=== PATIENT | female | born 1970 | race Caucasian/White ===

== ENCOUNTER 2022-08-30 12:02 | Inpatient (IN) ==
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
[2022-08-30] MEDS ORDERED: ALBUT/IPRATROP 3MG/0.5MG NEB 3 ML VIAL INH STA (12:28)
[2022-08-30] MEDS ORDERED: ALBUT/IPRATROP 3MG/0.5MG NEB 3 ML VIAL ONE (12:30)
[2022-08-30] MEDS ORDERED: FUROSEMIDE INJ 20 MG/2 ML VIAL IV ONE ×2 (12:50→18:45)
[2022-08-30] MEDS ORDERED: POTASSIUM CHLORIDE CRTAB 20 MEQ TABCR PO STA (12:50)
[2022-08-30 12:57] LABS: iSTAT Blood Urea Nitrogen 8 mg/dl (7-18); iSTAT Carbon Dioxide > 40 mmol/L (24-31); iSTAT Chloride 81 mmol/L (101-112); iSTAT Creatinine 0.7 mg/dl (0.6-1.3); iSTAT Glucose 110 mg/dl (70-99); iSTAT Hematocrit 39 % (37-47); iSTAT Hemoglobin 13.3 g/dl (12.0-16.0); iSTAT Ionized Calcium 0.95 mmol/l (1.12-1.32); iSTAT Potassium 2.8 mmol/L (3.3-5.0); iSTAT Sodium 134 mmol/L (135-144)
[2022-08-30 12:57] LABS: Basophils # (auto) 0.02 K/uL (0-0.2); Basophils % (auto) 0.2 %; Eosinophils # (auto) 0.02 K/uL (0-0.50); Eosinophils % (auto) 0.2 %; Hematocrit (blood only) 36.4 % (37.0-47.0); Hemoglobin 13.1 g/dl (12.0-16.0); Immature Granulocytes # (auto) 0.05 K/uL (0.01-0.20); Immature Granulocytes % (auto) 0.5 %; Lymphocytes # (auto) 1.47 K/uL (1.2-3.4); Lymphocytes % (auto) 15.6 %; Mean Corpuscular Hemoglobin 42.7 pg (25.0-34.0); Mean Corpuscular Volume 118.6 fL (80.0-100.0); Mean Platelet Volume 10.3 fL (9.4-12.4); Monocytes # (auto) 0.59 K/uL (0.11-0.59); Monocytes % (auto) 6.3 %; Neutrophils # (auto) 7.29 K/uL (1.40-6.50); Neutrophils % (auto) 77.2 %; Platelet Count 198 K/uL (130-400); RDW Coefficient of Variation 15.5 % (11.5-14.5); RDW Standard Deviation 67.3 fL (36.4-46.3); Red Blood Count 3.07 M/uL (4.20-5.40); White Blood Count 9.44 K/ul (4.8-10.8)
[2022-08-30] MEDS ORDERED: SPIRONOLACTONE 25 MG TAB PO ONE (13:05)
--- NOTE | 2022-08-30 13:05 | XRay Report ---
XR chest 1V portable CLINICAL HISTORY: Dyspnea. COMPARISON STUDY: Chest CT September 11, 2020. Rib series May 18, 2022. FINDINGS: Postoperative findings within the spine are incidentally noted. There is a large right pleu ral effusion. This is significantly increased in size since prior chest radiograph. Pulmonary vascula r congestion is noted. There is a trace left pleural effusion. IMPRESSION: 1. Large right pleural effusion, significantly increased in size since prior chest radiograph. 2. Trace left pleural effusion. 3. Pulmonary vascular congestion. ACT 112: Negative or not required by law. Electronically signed by: Parrish Lebron M.D. 08/30/2022 1:04 PM
[2022-08-30 13:13] LABS: INR 1.4 (0.9-1.1); Partial Thromboplastin Ratio 1.1; Partial Thromboplastin Time 30.5 Seconds (21.0-31.0); Prothrombin Time 14.5 Seconds (9.0-12.0)
[2022-08-30 13:21] LABS: Alanine Aminotransferase 27 U/L (7-52); Albumin Globulin Ratio 0.6 (0.9-2); Albumin Level 3.3 gm/dl (3.4-5.0); Alkaline Phosphatase 319 U/L (34-104); Anion Gap 9 (3-11); Aspartate Aminotransferase 61 U/L (13-39); BUN Creatinine Ratio 11.8 (10-20); Bilirubin,Total 5.7 mg/dl (0.2-1.0); Blood Urea Nitrogen 10 mg/dl (6-23); Calcium 9.3 mg/dl (8.5-10.1); Carbon Dioxide 44 mmol/L (21-32); Chloride 82 mmol/L (98-107); Est GFR (African American) 91.3 ml/min; Est GFR (Non-African American) 78.8 ml/min; Globulin 5.2 gm/dl (2.5-4.0); Glucose 108 mg/dl (70-99(Fasting)); Magnesium 1.5 mg/dl (1.7-2.4); Potassium 2.4 mmol/L (3.5-5.1); Sodium 135 mmol/L (136-145); Total Protein 8.5 gm/dl (6.0-8.3)
[2022-08-30 13:34] LABS: Macrocytosis Present; Polychromasia 1+
[2022-08-30] MEDS: POTASSIUM CHLORIDE / WTR 10 MEQ/100 ML PLCT IV SCH ×4 (13:40→22:10)
[2022-08-30] MEDS: MAGNESIUM SULFATE / D5W 1 GM/100 ML BAG IV SCH ×2 (13:55→15:26)
[2022-08-30 14:20] LABS: Base Excess VBG 23.3 mEq/L; HCO3 VBG 49 mmol/L; Oxygen Saturation VBG < 60.0 %; PCO2 VBG 55 mmHg (38-50); PO2 VBG 29 mmHg; pH VBG 7.56 (7.36-7.41)
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
[2022-08-30 14:32] LABS: Appearance Urine Cloudy (Clear); Bacteria Urine Automated Negative (Negative); Blood Urine Negative (Negative); Color Urine Dark Yellow; Epithelial Cell Urine Auto >30 /lpf (0-5); Glucose Urine UA Negative (Negative); Ketones Urine Trace (Negative); Leukocyte Esterase Urine Trace (Negative); Nitrite Urine Positive (Negative); Protein Urine Trace (Negative); RBC Urine Automated 0-4 /hpf (0-4); Specific Gravity Urine 1.018 (1.000-1.030); Urobilinogen Urine Positive (Negative)
[2022-08-30] MEDS ORDERED: LORazepam 2 MG/1 ML VIAL IV STA (14:32)
[2022-08-30] MEDS ORDERED: ACETAMINOPHEN 1,000 MG/100 ML VIAL IV STA (14:33)
[2022-08-30 14:57] LABS: Bilirubin Urine 2+ (Negative)
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
[2022-08-30] MEDS ORDERED: LORazepam 2 MG/1 ML VIAL IV PRN (15:55)
[2022-08-30 16:20] LABS: Influenza A virus by PCR Negative (Neg); Influenza B virus by PCR Negative (Neg); RSV by PCR Negative (Neg); SARS CoV2 RNA(COVID-19) Ceph NEGATIVE (Negative)
[2022-08-30] MEDS ORDERED: ALBUMIN 25% 12.5 GM/50 ML VIAL IV ONE ×2 (16:34→19:45)
--- NOTE | 2022-08-30 16:34 | Procedure Note ---
Procedure Note Date of Service August 30, 2022 Note Procedure: Diagnostic and therapeutic ultrasound-guided catheter thoracentesis Cylinder Press Operator: Dr. Darrell Luke Indication: Pleural effusion Consent: Signed by patient and verified with timeout prior to procedure Anesthesia: 8 mL's of 1% lidocaine without epinephrine given locally Procedure: Consent was verified and timeout performed. Appropriate imaging studies were reviewed prior to the procedure. Patient was placed in a seated position and limited thoracic ultrasound was performed of the right chest. See separate imaging. The site appropriate for thoracentesis was selected. The skin was prepped and draped in normal sterile fashion. Lidocaine was used for local analgesia. Fluid was aspirated via the finder needle. A small skin jarocho was made with the scalpel and the catheter over the needle apparatus was advanced over the rib into the pleural space. Using the syringe one-way valve system, a total of 1500 mL's of clear yellow fluid was removed. Procedure was terminated due to concerns for hypotension. The catheter was removed and observed to be intact. A sterile dressing was applied. Post procedure chest x-ray was ordered. Fluid was sent for LDH, total protein, cell count, glucose, pH, cytology, gram stain and culture and fungal cultures. The patient tolerated the procedure well without obvious complication. We will give a dose of albumin. Coding CPT Codes Pulmonary/Thoracic - Pulmonary and Thoracic: 71991 Thoracentesis w imaging ([id number]) [facility] [place] Procedure Codes (Charges) Pulmonary/Thoracic Procedure 1: Pulmonary and Thoracic: 02169 Thoracentesis w imaging
--- NOTE | 2022-08-30 16:54 | XRay Report ---
SINGLE VIEW CHEST CLINICAL HISTORY: Status post thoracentesis. FINDINGS: An AP, portable, upright chest radiograph is compared to study performed earlier the same d ay 08/30/2022 and correlated with chest CT dated 09/11/2020. The examination is degraded by portable asif hnique and apical lordotic positioning. The cardiomediastinal silhouette is unremarkable. Chronic int erstitial thickening is similar to previous. There is a layering right pleural effusion with right ba silar consolidation. This has decreased in size from today's earlier examination. Scarring/atelectasi s is noted at the left lung base. No pneumothorax is seen. The skeletal structures are osteopenic. Th e bony thorax is grossly intact. Fusion hardware is noted in the cervical spine. IMPRESSION: 1. No pneumothorax is identified post procedure. 2. Layering right pleural effusion with right basilar consolidation. This has decreased in size from today's earlier examination. 3. The left lung appears clear noting basilar scarring/atelectasis. ACT 112: Negative or not required by law. Electronically signed by: Nitish Lyon M.D. 08/30/2022 4:52 PM
--- NOTE | 2022-08-30 17:16 | Electrocardiogram Report ---
Test Reason : Blood Pressure : / mmHG Vent. Rate : 100 BPM Atrial Rate : 100 BPM P-R Int : 124 ms QRS Dur : 066 ms QT Int : 520 ms P-R-T Axes : -06 -18 069 degrees QTc Int : 670 ms Poor data quality, interpretation may be adversely affected Normal sinus rhythm Low voltage QRS Nonspecific ST and T wave abnormality Abnormal ECG When compared with ECG of 18-JUL-2015 06:45, T wave inversion now evident in Anterior leads QT has lengthened Confirmed by Lee Garcia ([id number]) on 08/30/2022 5:16:26 PM Referred By: REFERRED SELF Confirmed By:Yariel Garcia
--- NOTE | 2022-08-30 17:44 | Ultrasound Report ---
ULTRASOUND BILATERAL LOWER EXTREMITY VENOUS CLINICAL HISTORY: Dyspnea. COMPARISON STUDY: Left lower extremity venous ultrasound dated 12/02/2020 TECHNIQUE: Real-time, grayscale, and color Doppler sonography of the deep veins of the right and left lower extremity was performed from the inguinal crease to the calf. Compression and augmentation wer e utilized. FINDINGS: There is no sonographic evidence of deep venous thrombosis identified in the right or left lower extremity. The common femoral, superficial femoral, and popliteal veins are patent and normally compressible bilaterally. The greater saphenous vein and the profunda femoris vein at the junction w ith the common femoral vein are clear in both legs. The visualized calf veins are patent bilaterally. IMPRESSION: There is no sonographic evidence of deep venous thrombosis identified in the right or lef t lower extremity. ACT 112: Negative or not required by law. Electronically signed by: Nitish Lyon M.D. 08/30/2022 5:42 PM
[2022-08-30 17:45] LABS: Appearance Pleural Fluid Cloudy; Color Pleural Fluid Yellow; RBC Pleural Fluid Auto < 2000 /uL; Source Pleural Fluid Right Lung; WBC Pleural Fluid Auto 3922 /uL
[2022-08-30 17:46] LABS: Lymphocytes, Fluid 3 %; Mono,Macrophage,Mesothelial 8 %; Neutrophils, Fluid 89 %
--- NOTE | 2022-08-30 17:46 | Ultrasound Report ---
ULTRASOUND ASCITES CHECK CLINICAL HISTORY: Ascites. Dyspnea. COMPARISON STUDY: Abdominal CT dated 05/21/2022. FINDINGS: Real-time grayscale sonography of all 4 quadrants of the abdomen was performed to evaluate abdominal ascites. There is a small volume of abdominopelvic ascites. This was insufficient for parac entesis. IMPRESSION: Small volume abdominopelvic ascites. This was insufficient for paracentesis. Electronically signed by: Nitish Lyon M.D. 08/30/2022 5:45 PM
[2022-08-30] MEDS: cefTRIAXone SODIUM 2,000 MG in DEXTROSE 5% 50 ML IV SCH (20:03)
[2022-08-30] MEDS ORDERED: CYCLOBENZAPRINE HCL 10 MG TAB PO PRN (20:17)
[2022-08-30] MEDS ORDERED: ONDANSETRON 4 MG OD TAB PO PRN (20:17)
[2022-08-30] MEDS ORDERED: GABAPENTIN 300 MG CAP PO PRN (20:17)
[2022-08-30] MEDS ORDERED: ALBUTEROL HFA 8 GM INHALER INH PRN (20:17)
[2022-08-30] MEDS ORDERED: DEXTROSE 50% 50 ML SYRINGE IV PRN (20:19)
[2022-08-30] MEDS ORDERED: GLUCAGON FOR INJ 1 MG VIAL SQ PRN (20:19)
[2022-08-30] MEDS ORDERED: PHARMACY GLYCEMIC MGMT CONSULT PRN (20:19)
[2022-08-30] MEDS ORDERED: CARBOHYDRATES FOR HYPOGLYCEMIA PO PRN (20:19)
[2022-08-30] MEDS ORDERED: GLUCOSE 40% GEL 15 GM TUBE PO PRN (20:19)
[2022-08-30] MEDS ORDERED: GLUCOSE 10 TAB/TUBE PO PRN (20:19)
[2022-08-30 20:59] LABS: Base Excess VBG 21.4 mEq/L; HCO3 VBG 47 mmol/L; Oxygen Saturation VBG 86.6 %; PCO2 VBG 54 mmHg (38-50); PO2 VBG 54 mmHg; pH VBG 7.55 (7.36-7.41)
[2022-08-30] MEDS ORDERED: LANTUS PER UNIT CHARGE SQ SCH (21:00)
[2022-08-30] MEDS ORDERED: OPTIRAY 350 100ml IV ONE (21:20)
[2022-08-30] MEDS: busPIRone 5 MG TAB PO SCH (21:47)
[2022-08-30] MEDS: PANTOprazole 40 MG TAB PO SCH (21:47)
[2022-08-30] MEDS: FAMOTIDINE 20 MG TAB PO SCH (21:47)
[2022-08-30] MEDS: POTASSIUM CHLORIDE CRTAB 20 MEQ TABCR PO SCH (21:48)
[2022-08-30] MEDS: INSULIN ASPART PER UNIT SC SCH (21:49)
[2022-08-31 00:04] LABS: BUN Creatinine Ratio 13.9 (10-20); Calcium 8.4 mg/dl (8.5-10.1); Creatinine Clr Calc Pharmacy 99.6 ml/min; Est GFR (African American) 111.6 ml/min; Est GFR (Non-African American) 96.3 ml/min; Magnesium 1.8 mg/dl (1.7-2.4); Potassium 2.6 mmol/L (3.5-5.1)
[2022-08-31] MEDS: POTASSIUM CHLORIDE / WTR 10 MEQ/100 ML PLCT IV SCH ×8 (00:19→22:01)
[2022-08-31] MEDS ORDERED: INSULIN ASPART PER UNIT SC SCH (02:00)
[2022-08-31] MEDS: LEVOTHYROXINE SODIUM 150 MCG TABLET PO SCH (05:45)
[2022-08-31 07:46] LABS: HCO3 VBG 49 mmol/L; Oxygen Saturation VBG 82.9 %; PCO2 VBG 53 mmHg (38-50); PO2 VBG 54 mmHg; pH VBG 7.57 (7.36-7.41)
[2022-08-31 08:00] LABS: Basophils # (auto) 0.02 K/uL (0-0.2); Basophils % (auto) 0.2 %; Eosinophils # (auto) 0.06 K/uL (0-0.50); Eosinophils % (auto) 0.6 %; Hematocrit (blood only) 28.3 % (37.0-47.0); Hemoglobin 10.1 g/dl (12.0-16.0); Immature Granulocytes # (auto) 0.07 K/uL (0.01-0.20); Immature Granulocytes % (auto) 0.7 %; Lymphocytes % (auto) 24.3 %; Mean Corpuscular Hemoglobin 42.1 pg (25.0-34.0); Mean Corpuscular Hgb Conc 35.7 g/dL (32.0-36.0); Mean Corpuscular Volume 117.9 fL (80.0-100.0); Mean Platelet Volume 10.4 fL (9.4-12.4); Monocytes # (auto) 1.06 K/uL (0.11-0.59); Monocytes % (auto) 10.8 %; Neutrophils # (auto) 6.25 K/uL (1.40-6.50); Neutrophils % (auto) 63.4 %; Platelet Count 151 K/uL (130-400); RDW Coefficient of Variation 15.8 % (11.5-14.5); RDW Standard Deviation 66.9 fL (36.4-46.3); White Blood Count 9.86 K/ul (4.8-10.8)
--- NOTE | 2022-08-31 08:04 | XRay Report ---
SINGLE VIEW CHEST CLINICAL HISTORY: Dyspnea. Recent thoracentesis. FINDINGS: An AP, portable, upright chest radiograph is compared to studies performed earlier the same day 08/30/2022 and correlated with chest CT dated 09/11/2020. The examination is degraded by portable t echnique and apical lordotic positioning. The cardiomediastinal silhouette is unremarkable. Chronic i nterstitial thickening is similar to previous. There is a layering right pleural effusion with right basilar consolidation. Scarring/atelectasis is noted at the left lung base. No pneumothorax is seen. The skeletal structures are osteopenic. The bony thorax is grossly intact. Fusion hardware is noted i n the cervical spine. IMPRESSION: 1. A layering right pleural effusion with right basilar consolidation is similar to the most recent p rior examination. 2. The left lung appears clear noting basilar scarring/atelectasis. ACT 112: Negative or not required by law. Electronically signed by: Nitish Lyon M.D. 08/31/2022 8:03 AM
[2022-08-31 08:08] LABS: Estimated Average Glucose 94 mg/dl; Hemoglobin A1C 4.9 % (4.5-5.6)
[2022-08-31] MEDS: LORazepam 0.5 MG TAB PO PRN (08:13)
[2022-08-31] MEDS: POTASSIUM CHLORIDE CRTAB 20 MEQ TABCR PO SCH ×3 (08:27→20:09)
[2022-08-31] MEDS: busPIRone 5 MG TAB PO SCH ×3 (08:27→20:08)
[2022-08-31] MEDS: FAMOTIDINE 20 MG TAB PO SCH ×2 (08:27→20:09)
--- NOTE | 2022-08-31 08:27 | Pulmonology Progress Note ---
Date of Service August 31, 2022 Assessment & Plan (1) Hydrothorax: (2) Abdominal ascites: (3) Volume overload: (4) Acute hypoxemic respiratory failure: (5) Acute serous pleuritis: Plan Status post thoracentesis of the right 08/30/2022 with removal of 1.5 L of fluid. I placed a small bore chest tube on the right today and placed the chest tube to gravity. So far about 1.5 L of fluid has been removed. She does have signs of spontaneous bacterial pleuritis. Ceftriaxone started 08/30/2022. Patient feels improvement status post drainage. Recommend outpatient tertiary referral for possible TIPS procedure given recurrent ascites and hydrothorax. Would not place a Pleurx catheter in the chest unless the patient has had a thorough evaluation by hepatology and is only pursuing hospice care. Can consider Pleurx catheter in the abdomen, but would defer to our GI colleagues. Post procedure chest x-ray pending. We will continue to follow along with you. Thank you for the consult. Admission and Anticipated Discharge Date Admission Date: August 30, 2022 Subjective Patient requiring BiPAP this morning. Tripoding at times and very short of breath. Review of Systems Review of Systems: All systems reviewed & are unremarkable except as noted in HPI & below Physical Exam Physical Exam: Constitutional: Patient appears to be of their stated age. Patient is well-developed. Moderate distress. Eyes: Pupils are equal round and reactive to light. Conjunctivae are normal. Anicteric sclera. Ears nose, mouth and throat: Mallampati class 2. Normal posterior oropharynx. Uvula is midline. Neck: Trachea is midline. Visual inspection is normal. Respiratory: Tachypneic. Diminished on the right. No wheezes. Cardiovascular: Regular rate and rhythm. No murmurs. No edema. Gastrointestinal: Tense abdominal ascites. Positive fluid wave.. Musculoskeletal: No cyanosis. Patient is able to move all extremities. Strength is 5 out of 5 in the upper and lower extremities. Skin: No rashes, warm dry and intact. Neurologic: No obvious focal neurological deficits seen. Psychiatric: Alert and oriented x3 with a euthymic affect. Results & Data Results & Data ([facility]) Vital Signs (Past 12 Hours) Vital Signs Temp Pulse Pulse Resp BP Pulse Ox O2 Del Method 08/31/22 07:30 87 22 91 08/31/22 07:16 36.8 C 84 22 116/77 91 BiPAP 08/31/22 03:05 80 20 94 08/31/22 02:52 36.8 C 83 18 103/65 92 BiPAP 08/30/22 22:07 86 08/30/22 23:16 08/30/22 22:00 36.7 C 88 18 92/59 L 94 Non-rebreather O2 Flow Rate FiO2 08/31/22 07:30 75 08/31/22 07:16 08/31/22 03:05 75 08/31/22 02:52 08/30/22 22:07 08/30/22 23:16 75 08/30/22 22:00 10 PG Care Time/CCT Total # of Minutes Spent Total Time Spent with Patient: Total time spent is greater than 50% in coordination of care (as documented) at patient's floor/unit and/or counseling patient: Coding Level of Care Code 76410 SUB INP/OBS CARE 3/50MIN Diagnoses Hydrothorax J94.8 Abdominal ascites R18.8 Volume overload E87.70 Acute hypoxemic respiratory failure J96.01 Acute serous pleuritis J90
[2022-08-31] MEDS: PANTOprazole 40 MG TAB PO SCH ×2 (08:28→20:09)
[2022-08-31 08:35] LABS: Albumin Globulin Ratio 0.7 (0.9-2); Albumin Level 2.7 gm/dl (3.4-5.0); BUN Creatinine Ratio 15.6 (10-20); Bilirubin,Total 2.7 mg/dl (0.2-1.0); Calcium 8.3 mg/dl (8.5-10.1); Creatinine Clr Calc Pharmacy 112.1 ml/min; Est GFR (African American) 118.9 ml/min; Est GFR (Non-African American) 102.6 ml/min; Magnesium 1.7 mg/dl (1.7-2.4); Potassium 2.7 mmol/L (3.5-5.1); Total Protein 6.7 gm/dl (6.0-8.3)
[2022-08-31] MEDS: INSULIN ASPART PER UNIT SC SCH ×4 (08:35→21:07)
--- NOTE | 2022-08-31 08:40 | Procedure Note ---
Procedure Note Date of Service August 31, 2022 Note 8 Pakistani pneumo dart CATHETER PLACEMENT NOTE: Procedure: Pneumo dart catheter placement. Indication: Large right pleural effusion Anesthesia: 10 mL lidocaine 1% Written consent was obtained and placed on the chart. Timeout was done prior to the procedure. Prior to procedure, chest x-ray films were reviewed by myself and demonstrated a large right pleural effusion. A time-out was completed verifying correct patient, procedure, site, positioning, and implant(s) or special equipment if applicable. Utilizing bedside ultrasound, chest wall was evaluated for location for optimal chest tube placement. Location between the fifth and sixth ribs were marked on the skin using gentle pressure. The right sided chest wall was prepped with chlorhexidine and draped in the typical sterile fashion. 10 mL of 1% Lidocaine without epinephrine was used to anesthetize the skin down to the dorsal surface of the 6 rib. Yellow fluid return confirmed entry into the pleural space. Lidocaine was injected into the pleural space for increased anesthetization. Introducer needle on syringe was inserted in perpendicular fashion taking care to ride just above the dorsal surface of the 6 rib. Entry into the pleural space was heralded by yellow fluid return into the syringe while under gentle aspiration. Scalpel was used to make small incision of the superficial tissue, parallel to the direction of the rib anatomy. Catheter was inserted into the incision site and the catheter was inserted over the needle apparatus. Catheter was attached to an adapter which then attached to a Heard catheter. Drainage to gravity. Approximately 1500 mL of pleural fluid immediately evacuated. Postprocedure chest x-ray pending. Coding CPT Codes Pulmonary/Thoracic - Pulmonary and Thoracic: 85090 Tube thoracostomy ([id number]) [facility] [place] Procedure Codes (Charges) Pulmonary/Thoracic Procedure 1: Pulmonary and Thoracic: 78234 Tube thoracostomy
[2022-08-31 08:56] LABS: INR 1.4 (0.9-1.1); Prothrombin Time 14.7 Seconds (9.0-12.0)
[2022-08-31] MEDS ORDERED: METHADONE ORAL SOLN 2 MG/ML PO SCH (09:00)
[2022-08-31] MEDS ORDERED: FUROSEMIDE 40 MG/4 ML VIAL IV SCH (09:00)
[2022-08-31] MEDS ORDERED: PATIENT'S OWN CONTROLLED MED 1: Methadone SCH (09:00)
[2022-08-31] MEDS ORDERED: ACETAMINOPHEN 325 MG TAB PO PRN (09:16)
--- NOTE | 2022-08-31 09:24 | CT Scan Report ---
CT OF THE ABDOMEN AND PELVIS WITH CONTRAST CLINICAL HISTORY: tense abdomen hx ascites RODRIGUEZ,? loculated fluid COMPARISON STUDY: CT of the abdomen and pelvis May 21, 2022. Ultrasound to assess for ascites F ruary 2022. TECHNIQUE: Following IV administration of 85 mL of Optiray, axial images of the abdomen and pelvis we re obtained from the lung bases to the proximal femurs. Images were reviewed in the axial, sagittal, and coronal planes. IV contrast was administered without complication. Automated exposure control wa s utilized for the study. A dose lowering technique was utilized adhering to the principles of ALARA . CT DOSE: 693.56 mGy.cm FINDINGS: A moderate to large right pleural effusion is partially imaged on this examination. Associa rosalinda right lower lobe and right middle lobe suspected collapse is present. There is a trace left pleur al effusion with subsegmental left lower lobe atelectasis. No pneumatosis, free air or portal venous gas is present. The liver is enlarged. Severe hepatic steatosis is noted. There is suspected cirrhosi s. No discrete hepatic lesions are identified. Mild dilatation of the common bile duct is likely rela rosalinda to cholecystectomy. The main, left and right portal veins are patent. There is mild splenomegaly. There are small upper abdominal varices. A small amount of abdominal and pelvic ascites is noted. Th ere is no evidence for a bowel obstruction. Note is made of wall thickening of the ascending colon an d the proximal transverse colon. No fluid collection is identified. There is no evidence for a bowel obstruction. Left renal scarring is present. There is no hydronephrosis. A Heard balloon and gas with in the bladder present. There are no acute fractures within the visualized skeletal structures. IMPRESSION: 1. Severe hepatic steatosis with hepatomegaly and suspected cirrhosis. Evidence for portal hypertensi on with small ascites, splenomegaly and varices formation. 2. Moderate to large right pleural effusion, partially imaged on this exam. Associated right lower lo be and right middle lobe atelectasis. Small left pleural effusion. 3. Right colon wall thickening. This is likely due to portal hypertension although a nonspecific coli tis could appear similar. No bowel obstruction. ACT 112: Negative or not required by law. Electronically signed by: Parrish Lebron M.D. 08/31/2022 9:23 AM
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
--- NOTE | 2022-08-31 10:49 | Electrocardiogram Report ---
Test Reason : Blood Pressure : / mmHG Vent. Rate : 084 BPM Atrial Rate : 084 BPM P-R Int : 148 ms QRS Dur : 080 ms QT Int : 556 ms P-R-T Axes : -01 004 036 degrees QTc Int : 657 ms Normal sinus rhythm Low voltage QRS Nonspecific ST and T wave abnormality Prolonged QT Abnormal ECG When compared with ECG of 30-AUG-2022 12:51, No significant change was found Confirmed by Lee Garcia ([id number]) on 08/31/2022 10:48:51 AM Referred By: REFERRED SELF Confirmed By:Yariel Garcia
--- NOTE | 2022-08-31 11:03 | XRay Report ---
SINGLE VIEW CHEST CLINICAL HISTORY: Status post chest tube placement. FINDINGS: An AP, portable, upright chest radiograph is compared to studies dated 08/30/2022 and correl ated with chest CT dated 09/11/2020. The examination is degraded by portable technique and apical lordo tic positioning. The cardiomediastinal silhouette is unremarkable. Chronic interstitial thickening is similar to previous. A chest tube has been placed at the right lung base. There is only a small resi dual right pleural effusion with associated right basilar consolidation. This has significantly decre ased in size from previous. Scarring/atelectasis is noted at the left lung base. No pneumothorax is s een. The skeletal structures are osteopenic. The bony thorax is grossly intact. Fusion hardware is no rosalinda in the cervical spine. IMPRESSION: 1. A right-sided chest tube is in place. No pneumothorax is identified post procedure. 2. There is only a small residual right pleural effusion with right basilar consolidation. This has s ignificantly decreased in size from recent prior studies. 3. The left lung appears clear noting basilar scarring/atelectasis. ACT 112: Negative or not required by law. Electronically signed by: Nitish Lyon M.D. 08/31/2022 11:02 AM
--- NOTE | 2022-08-31 12:16 | Procedure Note ---
Procedure Note Date of Service August 31, 2022 Note Dressing taken down. Sutures were removed. Chest tube removed upon exhalation. Patient tolerated chest tube removal. Occlusive dressing placed over the incision site. Coding CPT Codes Pulmonary/Thoracic - Pulmonary and Thoracic: 22781 Remove lung catheter ([id number]) [facility] Procedure Codes (Charges) Pulmonary/Thoracic Procedure 1: Pulmonary and Thoracic: 83836 Remove lung catheter
--- NOTE | 2022-08-31 13:11 | Pharmacy Report ---
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 No insulin was administered 08/30. Today BSG so far is trending between 84 and 124 mg/dL * Will leave Novolog on board with loose parameters and monitor PLAN FOR INPATIENT GLYCEMIC CONTROL: * Hold outpatient oral diabetes medications * Bolus insulin * NovoLog per scale ACHS or Q6hrs while NPO * Goal Range: Low 110 mg/dL - High 140 mg/dL * Correction Factor: 35 mg/dL/unit * Nutritional / Prandial insulin per carb ratio of 1 unit per 12 grams CHO consumed
--- NOTE | 2022-08-31 14:39 | Hospitalist Progress Note ---
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 Status post right-sided thoracentesis and with right sided chest tube in place. Appreciate pulmonary medicine consultation and recommendations. She remains on intravenous Rocephin until cultures proven negative. No definite evidence of empyema. (2) Abdominal ascites: Plan: patient may be a TIPS candidate (especially given hepatic hydrothorax). No history of hepatic encephalopathy. No paracentesis needed at this time. Continue current medical management. Gastroenterology consulted. (3) Hypokalemia: Plan: Replacement therapy continues. Serial labs (4) Hypercarbia: Plan: acute hypoxic/hypercarbic respiratory failure present on admission. Wean oxygen off as tolerated. (5) Elevated troponin: Plan: Mild. No evidence of acute coronary syndrome. Telemetry. 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 Julissa Augustin) with last documentation from 06/29/2022. At that time was relatively stable with every 2-week paracentesis on Lasix 40 mg daily. (7) Hypomagnesemia: Plan: Corrected with replacement therapy. (8) Methadone dependence: Plan: Continue methadone 82 mg daily. (9) Diabetes mellitus: Plan: Patient is typically on 30 units glargine nightly. Currently on Lantus 10 units twice daily with sliding scale insulin, with glycemic management consult. ADA diet. Plan Anticipate eventual discharge back to home later this week . She may need oxygen at the time of discharge. Low sodium diabetic diet Admission and Anticipated Discharge Date Admission Date: August 30, 2022 Subjective Alert and oriented. Right-sided chest tube is now in place. She underwent right thoracentesis yesterday, August 30 Review of Systems Review of Systems: Constitutional-no fever or chills ENT-no blurred vision, no double vision, no epistaxis, no sore throat Respiratory-no cough, no wheezing, no shortness of breath at rest Cardiac-no palpitations, no chest pain, no syncope GI-no nausea, vomiting, diarrhea, melena, hematochezia -no urinary retention, no urinary incontinence, no dysuria, no hematuria Musculoskeletal-no joint pain, no muscle tenderness Skin-no bruising, no rashes, no pruritus Neuro-no isolated weakness, no paresthesia, no weakness Psych-no depression, no anxiety Physical Exam Physical Exam: General-alert and oriented x3, no fevers, no chills HEENT-head atraumatic and normocephalic, pupils equal and reactive to light, extraocular muscles intact Neck-no lymphadenopathy or thyromegaly, trachea midline Chest-decreased breath sounds and dullness at the right base. Right lower lateral chest tube in place . Clear yellow-colored fluid draining Cardiac-regular rate and rhythm, normal S1 and S2 Abdomen-normal bowel sounds, nontender, no hepatosplenomegaly Extremities-no cyanosis, clubbing, or edema Neuro-cranial nerves II through XII intact, motor and sensory function within normal limits, strength symmetrical , no focal deficits Psych-normal affect, normal mood Results & Data Results & Data ([facility]) Vital Signs (Past 12 Hours) Vital Signs Temp Pulse Pulse Resp BP Pulse Ox O2 Del Method 08/31/22 11:09 36.7 C 88 19 101/71 92 Nasal Cannula 08/31/22 10:17 64 08/31/22 09:00 BiPAP 08/31/22 07:30 87 22 91 08/31/22 07:16 36.8 C 84 22 116/77 91 BiPAP 08/31/22 03:05 80 20 94 08/31/22 02:52 36.8 C 83 18 103/65 92 BiPAP O2 Flow Rate FiO2 08/31/22 11:09 4.0 08/31/22 10:17 08/31/22 09:00 08/31/22 07:30 75 08/31/22 07:16 08/31/22 03:05 75 08/31/22 02:52 Laboratory Results 08/31/22 07:20 08/31/22 07:20 PG Care Time/CCT Total # of Minutes Spent Total Time Spent with Patient: Total time spent is greater than 50% in coordination of care (as documented) at patient's floor/unit and/or counseling patient: Coding Level of Care Code 97629 SUB INP/OBS CARE 3/50MIN Diagnoses Acute hypoxemic respiratory failure J96.01 Abdominal ascites R18.8 Hypokalemia E87.6 Hypercarbia R06.89 Elevated troponin R77.8 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
[2022-08-31] MEDS: cefTRIAXone SODIUM 2,000 MG in DEXTROSE 5% 50 ML IV SCH (18:10)
[2022-09-01] MEDS: LEVOTHYROXINE SODIUM 150 MCG TABLET PO SCH (06:26)
[2022-09-01] MEDS: LORazepam 0.5 MG TAB PO PRN (06:29)
[2022-09-01] MEDS: PANTOprazole 40 MG TAB PO SCH ×2 (08:21→19:56)
[2022-09-01] MEDS: POTASSIUM CHLORIDE CRTAB 20 MEQ TABCR PO SCH ×3 (08:21→19:56)
[2022-09-01] MEDS: METHADONE ORAL SOLN 2 MG/ML PO SCH (08:21)
[2022-09-01] MEDS: busPIRone 5 MG TAB PO SCH ×3 (08:22→19:55)
[2022-09-01] MEDS: PATIENT'S OWN CONTROLLED MED 1: Methadone SCH (08:22)
[2022-09-01] MEDS: FAMOTIDINE 20 MG TAB PO SCH ×2 (08:22→19:56)
[2022-09-01 08:37] LABS: Basophils # (auto) 0.03 K/uL (0-0.2); Basophils % (auto) 0.3 %; Eosinophils # (auto) 0.08 K/uL (0-0.50); Eosinophils % (auto) 0.8 %; Hematocrit (blood only) 28.8 % (37.0-47.0); Hemoglobin 10.1 g/dl (12.0-16.0); Immature Granulocytes # (auto) 0.06 K/uL (0.01-0.20); Immature Granulocytes % (auto) 0.6 %; Lymphocytes # (auto) 1.98 K/uL (1.2-3.4); Mean Corpuscular Hemoglobin 41.9 pg (25.0-34.0); Mean Corpuscular Hgb Conc 35.1 g/dL (32.0-36.0); Mean Corpuscular Volume 119.5 fL (80.0-100.0); Mean Platelet Volume 10.7 fL (9.4-12.4); Monocytes # (auto) 0.81 K/uL (0.11-0.59); Monocytes % (auto) 8.2 %; Neutrophils # (auto) 6.94 K/uL (1.40-6.50); Neutrophils % (auto) 70.1 %; Platelet Count 139 K/uL (130-400); RDW Coefficient of Variation 15.9 % (11.5-14.5); Red Blood Count 2.41 M/uL (4.20-5.40)
[2022-09-01 08:52] LABS: BUN Creatinine Ratio 17.7 (10-20); Calcium 8.4 mg/dl (8.5-10.1); Creatinine Clr Calc Pharmacy 116.2 ml/min; Est GFR (African American) 120.2 ml/min; Est GFR (Non-African American) 103.7 ml/min; Potassium 3.2 mmol/L (3.5-5.1)
[2022-09-01] MEDS: INSULIN ASPART PER UNIT SC SCH ×4 (08:54→19:57)
[2022-09-01] MEDS: POTASSIUM CHLORIDE / WTR 10 MEQ/100 ML PLCT IV SCH ×3 (10:10→12:16)
--- NOTE | 2022-09-01 13:14 | Pulmonology Progress Note ---
Date of Service September 01, 2022 Assessment & Plan (1) Hydrothorax: (2) Abdominal ascites: (3) Volume overload: (4) Acute hypoxemic respiratory failure: (5) Acute serous pleuritis: Plan No signs of infection at this time from the pleural space. Ok to discontinue abx and discharge home from pulmonary perspective. Needs home o2 eval prior to discharge. Will need follow up with hematology for possible TIPS. Pleural fluid cytology negative. Admission and Anticipated Discharge Date Admission Date: August 30, 2022 Subjective Dyspnea improved. No chest pain or fevers. Review of Systems Review of Systems: All systems reviewed & are unremarkable except as noted in HPI & below Physical Exam Physical Exam: Constitutional: Patient appears to be of their stated age. Patient is well- developed. Moderate distress. Eyes: Pupils are equal round and reactive to light. Conjunctivae are normal. Anicteric sclera. Ears nose, mouth and throat: Mallampati class 2. Normal posterior oropharynx. Uvula is midline. Neck: Trachea is midline. Visual inspection is normal. Respiratory: Tachypneic. Diminished on the right. No wheezes. Cardiovascular: Regular rate and rhythm. No murmurs. No edema. Gastrointestinal: Tense abdominal ascites. Positive fluid wave. Musculoskeletal: No cyanosis. Patient is able to move all extremities. Strength is 5 out of 5 in the upper and lower extremities. Skin: No rashes, warm dry and intact. Neurologic: No obvious focal neurological deficits seen. Psychiatric: Alert and oriented x3 with a euthymic affect. Results & Data Results & Data ([facility]) Vital Signs (Past 12 Hours) Vital Signs Temp Pulse Resp BP Pulse Ox O2 Del Method O2 Flow Rate 09/01/22 12:13 36.9 C 91 H 19 114/73 94 Nasal Cannula 4.0 09/01/22 09:40 Nasal Cannula 4 09/01/22 07:43 36.8 C 85 18 108/74 93 Nasal Cannula 4.0 09/01/22 03:06 37.0 C 83 14 100/65 90 Nasal Cannula 4 PG Care Time/CCT Total # of Minutes Spent Total Time Spent with Patient: Total time spent is greater than 50% in coordination of care (as documented) at patient's floor/unit and/or counseling patient: Coding Level of Care Code 56716 SUB INP/OBS CARE 2/35MIN Diagnoses Hydrothorax J94.8 Abdominal ascites R18.8 Volume overload E87.70 Acute hypoxemic respiratory failure J96.01 Acute serous pleuritis J90
--- NOTE | 2022-09-01 14:13 | Hospitalist Progress Note ---
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 Status post right-sided thoracentesis and with right sided chest tube. Chest tube was removed yesterday, August 31. Appreciate pulmonary medicine consultation and recommendations. Rocephin discontinued. Cultures negative. No definite evidence of empyema. (2) Abdominal ascites: Plan: patient may be a TIPS candidate (especially given hepatic hydrothorax). No history of hepatic encephalopathy. No paracentesis needed at this time. Continue current medical management. Gastroenterology consulted. (3) Hypokalemia: Plan: Replacement therapy continues. Serial labs (4) Hypercarbia: Plan: acute hypoxic/hypercarbic respiratory failure present on admission. Two-step oxygen evaluation completed. She needs 2 L at rest and 3 L with exertion at the time of discharge. Hopefully this can be weaned off as time progresses. (5) Elevated troponin: Plan: Mild. No evidence of acute coronary syndrome. Telemetry. 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 Julissa Augustin) with last documentation from 06/29/2022. At that time was relatively stable with every 2-week paracentesis. On Lasix 40 mg daily. (7) Hypomagnesemia: Plan: Corrected with replacement therapy. (8) Methadone dependence: Plan: Continue methadone daily. (9) Diabetes mellitus: Plan: Patient is typically on 30 units glargine nightly. Currently on Lantus 10 units twice daily with sliding scale insulin, with glycemic management consult. ADA diet. Plan Anticipate discharge to home tomorrow, September 02, with oxygen. Admission and Anticipated Discharge Date Admission Date: August 30, 2022 Subjective Alert and oriented. Potassium supplementation continues. The right chest tube was removed yesterday, August 31. Two-step oxygen evaluation reveals the need for 2 L at rest and 3 L with ambulation. Heard catheter will be removed today. Probably home tomorrow, September 02 Review of Systems Review of Systems: Constitutional-no fever or chills ENT-no blurred vision, no double vision, no epistaxis, no sore throat Respiratory-no cough, no wheezing, no shortness of breath at rest Cardiac-no palpitations, no chest pain, no syncope GI-no nausea, vomiting, diarrhea, melena, hematochezia -no urinary retention, no urinary incontinence, no dysuria, no hematuria Musculoskeletal-no joint pain, no muscle tenderness Skin-no bruising, no rashes, no pruritus Neuro-no isolated weakness, no paresthesia, no weakness Psych-no depression, no anxiety Physical Exam 2 Physical Exam: General-alert and oriented x3, no fevers, no chills HEENT-head atraumatic and normocephalic, pupils equal and reactive to light, extraocular muscles intact Neck-no lymphadenopathy or thyromegaly, trachea midline Chest-decreased breath sounds and dullness at the right base. Right lower lateral chest tube has been removed. Cardiac-regular rate and rhythm, normal S1 and S2 Abdomen-normal bowel sounds, nontender, no hepatosplenomegaly Extremities-no cyanosis, clubbing, or edema Neuro-cranial nerves II through XII intact, motor and sensory function within normal limits, strength symmetrical , no focal deficits Psych-normal affect, normal mood Results & Data Results & Data ([facility]) Vital Signs (Past 12 Hours) Vital Signs Temp Pulse Pulse Pulse Pulse Pulse Pulse 09/01/22 13:22 98 H 99 H 104 H 94 H 84 09/01/22 12:13 36.9 C 91 H 09/01/22 09:40 09/01/22 07:43 36.8 C 85 09/01/22 03:06 37.0 C 83 Resp Resp Resp Resp Resp Resp BP 09/01/22 13:22 16 20 20 16 16 09/01/22 12:13 19 114/73 09/01/22 09:40 09/01/22 07:43 18 108/74 09/01/22 03:06 14 100/65 Pulse Ox Pulse Ox Pulse Ox Pulse Ox Pulse Ox Pulse Ox O2 Del Method 09/01/22 13:22 92 94 83 L 91 87 L 09/01/22 12:13 94 Nasal Cannula 09/01/22 09:40 Nasal Cannula 09/01/22 07:43 93 Nasal Cannula 09/01/22 03:06 90 Nasal Cannula O2 Flow Rate O2 Flow Rate O2 Flow Rate O2 Flow Rate O2 Flow Rate 09/01/22 13:22 2 3 2 2 09/01/22 12:13 4.0 02/22/23 09:40 4 09/01/22 07:43 4.0 09/01/22 03:06 4 Laboratory Results 09/01/22 07:45 09/01/22 07:45 PG Care Time/CCT Total # of Minutes Spent Total Time Spent with Patient: Total time spent is greater than 50% in coordination of care (as documented) at patient's floor/unit and/or counseling patient: Coding Level of Care Code 77601 SUB INP/OBS CARE 3/50MIN Diagnoses Acute hypoxemic respiratory failure J96.01 Abdominal ascites R18.8 Hypokalemia E87.6 Hypercarbia R06.89 Elevated troponin R77.8 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
[2022-09-02] MEDS: LEVOTHYROXINE SODIUM 150 MCG TABLET PO SCH (05:48)
[2022-09-02 06:10] LABS: Hematocrit (blood only) 27.3 % (37.0-47.0); Hemoglobin 9.3 g/dl (12.0-16.0); Mean Corpuscular Hemoglobin 41.9 pg (25.0-34.0); Mean Corpuscular Hgb Conc 34.1 g/dL (32.0-36.0); Mean Platelet Volume 10.5 fL (9.4-12.4); Platelet Count 146 K/uL (130-400); RDW Coefficient of Variation 16.2 % (11.5-14.5); RDW Standard Deviation 72.3 fL (36.4-46.3); Red Blood Count 2.22 M/uL (4.20-5.40); White Blood Count 8.73 K/ul (4.8-10.8)
[2022-09-02 06:36] LABS: Basophils # (auto) 0.02 K/uL (0-0.2); Basophils % (auto) 0.2 %; Eosinophils # (auto) 0.12 K/uL (0-0.50); Eosinophils % (auto) 1.4 %; Immature Granulocytes # (auto) 0.05 K/uL (0.01-0.20); Immature Granulocytes % (auto) 0.6 %; Lymphocytes # (auto) 2.66 K/uL (1.2-3.4); Lymphocytes % (auto) 30.5 %; Macrocytosis Present; Monocytes # (auto) 0.92 K/uL (0.11-0.59); Monocytes % (auto) 10.5 %; Neutrophils # (auto) 4.96 K/uL (1.40-6.50); Neutrophils % (auto) 56.8 %; Polychromasia 1+
[2022-09-02 06:43] LABS: BUN Creatinine Ratio 14.8 (10-20); Calcium 8.6 mg/dl (8.5-10.1); Est GFR (African American) 120.8 ml/min; Est GFR (Non-African American) 104.2 ml/min; Potassium 3.9 mmol/L (3.5-5.1)
[2022-09-02] MEDS: INSULIN ASPART PER UNIT SC SCH ×2 (08:41→12:10)
[2022-09-02] MEDS: busPIRone 5 MG TAB PO SCH ×2 (08:42→14:46)
[2022-09-02] MEDS: METHADONE ORAL SOLN 2 MG/ML PO SCH (08:43)
[2022-09-02] MEDS: FAMOTIDINE 20 MG TAB PO SCH (08:43)
[2022-09-02] MEDS: PANTOprazole 40 MG TAB PO SCH (08:46)
[2022-09-02] MEDS: POTASSIUM CHLORIDE CRTAB 20 MEQ TABCR PO SCH ×2 (08:47→14:47)
[2022-09-02] MEDS: PATIENT'S OWN CONTROLLED MED 1: Methadone SCH (09:25)
--- NOTE | 2022-09-02 12:15 | Discharge Summary ---
Date of Service September 02, 2022 Admission HPI Per Admitting Provider 52-year-old female with a history of RODRIGUEZ cirrhosis with paracentesis every 2 weeks, substance use disorder on daily methadone therapy, tobacco use, DM2, GERD presented to the ER for worsening shortness of breath and abdominal pain. She notes that her last paracentesis was about 3 weeks ago. Starting on Tuesday she started having worsening of shortness of breath as well as upper abdominal pain. In the ER she was noted to have hypoxia requiring nonrebreather, with chest x- ray showing a large right-sided pleural effusion. Due to VBG showing PCO2 of 55 patient was placed on BiPAP. She was also noted on lab work to have a potassium of 2.4, sodium of 135, T. bili of 5.7, magnesium of 1.5, INR of 1.4. She was given IV magnesium and potassium chloride, 20 mg of Lasix and her home spironolactone dose. On first interview patient reports significant shortness of breath and abdominal tightness, but on repeat interview after thoracentesis patient reports feeling more comfortable with her breathing. She does not note any recent medication or dietary changes. Denies fevers, chest pain Principal Diagnosis None malignant right pleural effusion secondary to cirrhosis, acute hypoxic respiratory failure Discharge Exam General-alert and oriented x3, no fevers, no chills HEENT-head atraumatic and normocephalic, pupils equal and reactive to light, extraocular muscles intact Neck-no lymphadenopathy or thyromegaly, trachea midline Chest-decreased breath sounds and dullness at the right base. Right lower l ateral chest tube has been removed. Cardiac-regular rate and rhythm, normal S1 and S2 Abdomen-normal bowel sounds, nontender, no hepatosplenomegaly Extremities-no cyanosis, clubbing, or edema Neuro-cranial nerves II through XII intact, motor and sensory function within normal limits, strength symmetrical , no focal deficits Psych-normal affect, normal mood Discharge Data Allergies Allergy/AdvReac Type Severity Reaction Status Date / Time semaglutide [From Ozempic] Allergy Intermediate GENERALIZED Verified 08/30/22 17:29 SWELLING Consultations 08/30/22 14:20 ED Decision to Admit Stat 08/30/22 15:49 Consult Gastroenterology Routine Consult Pulmonology Routine Ordered Studies 08/30/22 12:28 US venous doppler LE BI Stat 08/30/22 15:43 sono, invasive monitoring [US point of care ultrasound] Urgent 08/30/22 16:01 US abdomen ltd ascites Stat 08/30/22 17:53 CT Abd and Pelvis [CT abd pelvis IV con only] Urgent 08/31/22 07:50 US point of care ultrasound Urgent Hospital Course (1) Acute hypoxemic respiratory failure: Due to large right-sided pleural effusion, 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 Status post right-sided thoracentesis and with right sided chest tube. Chest tube was removed on August 31. Appreciate pulmonary medicine consultation and recommendations. Rocephin has been discontinued. Cultures negative. No definite evidence of empyema. (2) Abdominal ascites: patient may be a TIPS candidate (especially given hepatic hydrothorax). No history of hepatic encephalopathy. No paracentesis needed at this time. Continue current medical management. Gastroenterology consulted. (3) Hypokalemia: Replacement therapy continues. Serial labs (4) Hypercarbia: acute hypoxic/hypercarbic respiratory failure present on admission. Two-step oxygen evaluation completed. She needs 2 L at rest and 3 L with exertion at the time of discharge. Hopefully this can be weaned off as time progresses. (5) Elevated troponin: Mild. No evidence of acute coronary syndrome. Telemetry. 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 Julissa Augustin) with last documentation from 06/29/2022. At that time was relatively stable with every 2-week paracentesis. On Lasix 40 mg daily. (7) Hypomagnesemia: Corrected with replacement therapy. (8) Methadone dependence: Continue methadone daily. (9) Diabetes mellitus: Patient is typically on 30 units glargine nightly. Currently on Lantus 10 units twice daily with sliding scale insulin, with glycemic management consult. ADA diet. Plan Home today, September 02, with supplemental oxygen. Total Time Total Time Spent Total Time Spent (In Minutes): 40 minutes Discharge Plan Discharge Items Patient Disposition: Home - Home Health Services Reason For Visit: ACUTE HYP RESP FAILURE, PLEAURAL EFFUSION, ASCITES Discharge Diagnosis: Nonmalignant right pleural effusion secondary to cirrhosis, acute hypoxic respiratory failure, hypokalemia Activity: Resume your previous activity Non-emergency contact: Primary Care Provider Call non-emergency contact if: you have any medication questions and your symptoms worsen Follow-up/Referrals: Alex Correa MD [Primary Care Provider] - Diet: Heart Healthy Addtl Attending Provider Instructions: Wear oxygen by nasal cannula at all times. 2 L/min while at rest. 3 L/min with any activity Pending Studies at Discharge: No Stand-Alone Forms: My [facility] [employer], Smoking Cessation Medications and DC Order Prescriptions: Continued methadone 10 mg/mL concentrate 82 mg PO QAM buspirone 10 mg tablet 10 mg PO TID Qty: 90 3RF (DME) blood-glucose meter [[employer] Ultra2 Meter] [facility] See Rx Instructions .Route Qty: 1 0RF Rx Instructions: As directed to test blood sugar twice a day cyclobenzaprine 10 mg tablet 10 mg PO HS PRN (Reason: muscle spasm) 30 Days Qty: 20 0RF albuterol sulfate 90 mcg/actuation HFA aerosol inhaler 2 puff inhalation Q6H PRN (Reason: shortness of breath or wheezing) Qty: 8.5 1RF levothyroxine 150 mcg tablet 150 mcg PO QAM Qty: 90 3RF Slow-Mag 71.5 mg tablet,delayed release (DR/EC) 71.5 mg PO DAILY Qty: 30 5RF (DME) lancets [Popular [employer] Delica Lancets] 33 gauge misc See Rx Instructions .Route Qty: 100 6RF Rx Instructions: Test blood sugar two times daily ondansetron 4 mg tablet,disintegrating 4 mg PO Q8H PRN (Reason: nausea and vomiting) Qty: 30 1RF esomeprazole magnesium [Nexium] 40 mg capsule,delayed release(DR/EC) 40 mg PO BID Qty: 60 2RF lorazepam [Ativan] 0.5 mg tablet 0.5 mg PO DAILY PRN (Reason: Anxiety) gabapentin 300 mg capsule 300 mg PO TID PRN (Reason: Pain) naloxone [Narcan] 4 mg/actuation spray,non-aerosol 1 ea intranasal DIRECTED PRN (Reason: Other) potassium chloride 20 mEq tablet extended release 20 meq PO TID Qty: 90 5RF (DME) pen needle, diabetic [BD Shantel 2nd Gen Pen Needle] 32 gauge x 5/32" needle See Rx Instructions .Route Qty: 100 11RF Rx Instructions: Inject insulin once daily insulin glargine [Lantus Solostar U-100 Insulin] 100 unit/mL (3 mL) insulin pen 30 unit subcut QPM Qty: 30 0RF (DME) OneTouch Ultra Test Strip See Rx Instructions .Route Qty: 400 1RF Rx Instructions: Test Blood Sugars 4 times a day albuterol sulfate 90 mcg/actuation HFA aerosol inhaler 2 puff INHALATION DIRECTED PRN (Reason: Shortness Of Breath) furosemide [Lasix] 40 mg tablet 40 mg PO DAILY famotidine [Pepcid] 20 mg tablet 20 mg PO BID ibuprofen 800 mg tablet 800 mg PO Q12H PRN (Reason: Pain) Rx Instructions: take 1 tablet by mouth every 12 hours NEEDED FOR PAIN TAKE WITH FOOD Discharge Orders: Discharge Order (Routine); Ordered 09/02/22 Ordered By: Alphonso Hernández Admission Data Admit Date/Time: 08/30/22 15:49 Attending Provider: Alphonso Hernández Admit Provider: Candi Nicolas Primary Care Provider: Alex Correa V. 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
[2022-09-02] MEDS: LORazepam 0.5 MG TAB PO PRN (12:41)
== END 2022-09-02 16:01 | disposition home health service (06) | DRG 189 ==
LOC: ED 12:02 → 2S 15:49 → SUATTDRO 15:49 → 2S 17:55

== ENCOUNTER 2024-04-27 11:43 | Inpatient (IN) ==
[2024-04-27 12:44] LABS: Basophils # (auto) 0.06 K/uL (0.00-0.20); Basophils % (auto) 0.5 %; Eosinophils # (auto) 0.17 K/uL (0.00-0.50); Eosinophils % (auto) 1.4 %; Hemoglobin 9.3 g/dl (12.0-16.0); Immature Granulocytes # (auto) 0.05 K/uL (0.01-0.20); Immature Granulocytes % (auto) 0.4 %; Lymphocytes # (auto) 3.16 K/uL (1.20-3.40); Lymphocytes % (auto) 26.8 %; Mean Corpuscular Hemoglobin 32.9 pg (25.0-34.0); Mean Corpuscular Hgb Conc 33.2 g/dL (32.0-36.0); Mean Corpuscular Volume 98.9 fL (80.0-100.0); Mean Platelet Volume 10.9 fL (9.4-12.4); Monocytes # (auto) 1.22 K/uL (0.11-0.59); Monocytes % (auto) 10.3 %; Neutrophils # (auto) 7.13 K/uL (1.40-6.50); Neutrophils % (auto) 60.6 %; Platelet Count 192 K/uL (130-400); RDW Coefficient of Variation 19.9 % (11.5-14.5); RDW Standard Deviation 71.6 fL (36.4-46.3); Red Blood Count 2.83 M/uL (4.20-5.40); White Blood Count 11.79 K/ul (4.8-10.8)
[2024-04-27 13:00] LABS: BUN Creatinine Ratio 13.6 (10-20); Calcium 8.9 mg/dl (8.6-10.3); Creatinine Clr Calc Pharmacy 35.8 ml/min; Magnesium 1.7 mg/dl (1.7-2.4); Potassium 3.3 mmol/L (3.5-5.1)
[2024-04-27 13:25] LABS: INR 1.1 (0.9-1.1); Partial Thromboplastin Time 27 Seconds (21-31); Prothrombin Time 12.3 Seconds (9.0-12.0)
--- NOTE | 2024-04-27 13:28 | CT Scan Report ---
CT OF THE ABDOMEN AND PELVIS WITHOUT CONTRAST CLINICAL HISTORY: Acute kidney injury. COMPARISON STUDY: CT of the abdomen and pelvis August 30, 2022. Right upper quadrant ultrasound No [id number]. TECHNIQUE: Axial images of the abdomen and pelvis were obtained without IV contrast. Images were revi ewed in the axial, sagittal, and coronal planes. Automated exposure control was utilized for the quita dy. A dose lowering technique was utilized adhering to the principles of ALARA. FINDINGS: There is a trace left pleural effusion. Mild right middle lobe alveolar opacities are prese nt. Additional opacities within the lower lungs favor atelectasis. No pneumatosis, free air or portal venous gas is present. No renal, ureteral or bladder calculi are present. There is no hydronephrosis . There is mild bilateral renal cortical thinning. Evaluation of the remainder of the abdomen and pel vis is suboptimal on this unenhanced exam. Mild dilatation of the common bile duct is unchanged and l ikely related to cholecystectomy. The liver is cirrhotic. There is marked heterogeneity of the liver with multiple hypodense foci throughout the liver. The liver is suboptimally assessed on this unenhan michelle exam. Size of the spleen is at the upper limits of normal. Abdominal and pelvic varices are prese nt. There is large volume ascites. There is no evidence for a bowel obstruction. No fluid collections are present. There are multiple healing bilateral lower rib fractures. There are also healing fractu res of the bilateral pubic rami and bilateral sacral ala. Numerous lower thoracic and lumbar spine co mpression fractures are noted. Each vertebra is fractured with the exception of T10. These fractures are new since CT of August 30, 2022. Vertebral body height loss is most pronounced at the L1 level with mild retropulsion at several levels. Heterogeneous appearance of the bilateral femoral heads is noted. This favors osteopenia. No proximal femoral fracture is identified. There is body wall edema. IMPRESSION: 1. No urinary calculi or hydronephrosis. 2. Cirrhotic liver. Heterogeneous liver with multiple hypodense foci. Findings are suboptimally asses sed on this unenhanced exam but favor focal areas of hepatic steatosis. Although considered less like ly, underlying liver lesions cannot be completely excluded and therefore imaging follow-up is recomme nded. 3. Manifestations of portal hypertension including large volume ascites and varices formation. 4. No bowel obstruction. No bowel wall thickening on unenhanced exam. 5. Mild right middle lobe airspace opacities. These favor a mild infectious process. 6. Numerous thoracolumbar spine compression fractures which are new since CT of August 30, 2022. Th allyn are age-indeterminate. Bilateral pubic ring and sacral ala fractures, likely subacute. ACT 112: Negative or not required by law. Electronically signed by: Parrish Lebron M.D. 04/27/2024 1:27 PM
[2024-04-27 14:02] LABS: Albumin Level 3.4 gm/dl (3.4-5.0); Bilirubin Direct 0.6 mg/dl (0-0.2); Bilirubin,Total 1.5 mg/dl (0.2-1.0); Total Protein 8.2 gm/dl (6.0-8.3)
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
--- NOTE | 2024-04-27 16:08 | XRay Report ---
XR chest 1V portable CLINICAL HISTORY: shortness of breath TECHNIQUE: Single frontal radiograph of the chest was obtained. Comparison: None available at the time of this dictation. FINDINGS: No lines and tubes are seen. The cardiomediastinal silhouette is normal. The lungs are clear. No evid ence of pleural effusion or pneumothorax. IMPRESSION: No acute abnormalities and in particular no radiographic evidence of pneumonia. ACT 112: Negative or not required by law. Electronically signed by: Colton Bourgeois M.D. 04/27/2024 4:07 PM
[2024-04-27 16:51] LABS: Appearance Urine Turbid (Clear); Bacteria Urine Automated 1+ (None Seen); Bilirubin Urine Negative (Negative); Blood Urine 2+ (Negative); Color Urine Yellow; Glucose Urine UA Negative (Negative); Ketones Urine Trace (Negative); Leukocyte Esterase Urine 3+ (Negative); Nitrite Urine Negative (Negative); Protein Urine 1+ (Negative); RBC Urine Automated >20 /hpf (0-2); Specific Gravity Urine 1.015 (1.000-1.030); Urobilinogen Urine Negative (Negative); WBC Urine Automated >50 /hpf (0-5); pH Urine 5.5 (4.5-7.5)
[2024-04-27 17:26] LABS: Thyroid Stimulating Hormone 16.379 uIu/ml (0.300-4.500)
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
[2024-04-27] MEDS ORDERED: LORazepam 0.5 MG TAB PO PRN (20:07)
[2024-04-27 20:13] LABS: Total Protein Urine Random 72.4 mg/dl (0-11.9)
[2024-04-27 20:18] LABS: Creatinine Urine Random 120.6 mg/dl; Protein Creatinine Ratio Urine 0.6 (0-0.2)
[2024-04-27] MEDS: busPIRone 15 MG TAB PO SCH (21:00)
[2024-04-27] MEDS: POTASSIUM CHLORIDE CRTAB 20 MEQ TABCR PO SCH (22:31)
[2024-04-27] MEDS: FAMOTIDINE 20 MG TAB PO SCH (22:31)
[2024-04-27] MEDS: METHADONE ORAL SOLN 2 MG/ML PO ONE (22:31)
[2024-04-27] MEDS: LANTUS PER UNIT CHARGE SQ SCH (22:31)
[2024-04-27] MEDS: BUMETANIDE 1 MG TAB PO SCH (22:31)
[2024-04-27] MEDS: PANTOprazole 40 MG TAB PO SCH (22:31)
[2024-04-27] MEDS: ONDANSETRON INJ 2 MG/ML 2 ML VIAL IV PRN (22:37)
[2024-04-27] MEDS: PATIENT'S OWN CONTROLLED MED 1 PO SCH (22:51)
[2024-04-28] MEDS: LEVOTHYROXINE SODIUM 150 MCG TABLET PO SCH (05:38)
[2024-04-28 07:41] LABS: Basophils # (auto) 0.03 K/uL (0.00-0.20); Basophils % (auto) 0.3 %; Eosinophils # (auto) 0.11 K/uL (0.00-0.50); Eosinophils % (auto) 1.3 %; Hematocrit (blood only) 23.6 % (37.0-47.0); Hemoglobin 7.6 g/dl (12.0-16.0); Immature Granulocytes # (auto) 0.03 K/uL (0.01-0.20); Immature Granulocytes % (auto) 0.3 %; Lymphocytes # (auto) 2.36 K/uL (1.20-3.40); Mean Corpuscular Hemoglobin 32.3 pg (25.0-34.0); Mean Corpuscular Hgb Conc 32.2 g/dL (32.0-36.0); Mean Corpuscular Volume 100.4 fL (80.0-100.0); Mean Platelet Volume 10.5 fL (9.4-12.4); Monocytes # (auto) 1.02 K/uL (0.11-0.59); Monocytes % (auto) 11.7 %; Neutrophils # (auto) 5.19 K/uL (1.40-6.50); Neutrophils % (auto) 59.4 %; Platelet Count 136 K/uL (130-400); RDW Coefficient of Variation 19.9 % (11.5-14.5); RDW Standard Deviation 72.2 fL (36.4-46.3); Red Blood Count 2.35 M/uL (4.20-5.40); White Blood Count 8.74 K/ul (4.8-10.8)
[2024-04-28 07:58] LABS: Albumin Globulin Ratio 0.7 (0.9-2); Albumin Level 2.6 gm/dl (3.4-5.0); BUN Creatinine Ratio 14.1 (10-20); Bilirubin,Total 1.7 mg/dl (0.2-1.0); Calcium 8.3 mg/dl (8.6-10.3); Creatinine Clr Calc Pharmacy 36.9 ml/min; Globulin 3.6 gm/dl (2.5-4.0); Potassium 3.7 mmol/L (3.5-5.1); Total Protein 6.2 gm/dl (6.0-8.3)
[2024-04-28 08:00] LABS: Macrocytosis Present; Polychromasia 1+
[2024-04-28] MEDS: FERROUS SULFATE 325 MG TAB PO SCH (09:03)
[2024-04-28] MEDS: METHADONE ORAL SOLN 2 MG/ML PO SCH (09:03)
[2024-04-28] MEDS: MAGNESIUM OXIDE 400 MG TAB PO SCH (09:03)
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
[2024-04-28] MEDS: ALBUMIN 25% 25 GM/100 ML VIAL IV SCH (14:43)
[2024-04-28] MEDS: OCTREOTIDE ACETATE 100 MCG/ML VIAL SQ SCH (14:57)
--- NOTE | 2024-04-28 15:36 | Hospitalist Progress Note ---
Date of Service April 28, 2024 Assessment & Plan (1) JESSICA (acute kidney injury): Plan: Progressively worsening renal function. Cr risin from 1.18 in August to 1.9 on admission. 1.8 today Suspect due to change in diuretics although may be developing hepatorenal syn drome. She is not entirely clear of the medications she is taking. Call Or Contact Centre Manager involved Continue reduced dose of 1mg Bumex BID Call Or Contact Centre Manager started on IV albumin and octreotide Midodrine held (2) Chills: Plan: Monitor overnight for objective fever No abdominal pain on exam to suggest SBP WBC elevated on admission but normal today, procalcitonin level normal today Blood cultures ordered, pending (3) Cirrhosis of liver: Plan: Longstanding under [facility] hepatology MELD 18 Consideration for TIPS given refractory ascites without hepatic encephalopathy however this can be done on outpatient basis (4) Fibromyalgia syndrome: Plan: Continue gabapentin PRN (5) Hypothyroidism: Plan: TSH ordered as recent high with reflex to T4 Continue levothyroxine (6) GERD (gastroesophageal reflux disease): Plan: Switch nexium (7) Abdominal ascites: Plan VTE Prophylaxis - deferred due to thrombocytopenia Diet - low Na, T2DM Admission and Anticipated Discharge Date Admission Date: April 27, 2024 Subjective Patient was seen and examined at 11:20 AM. She did not have any major com plaints. She stated that she came to the hospital because of abnormal labs and that she feels no different. Review of Systems Review of Systems: All systems reviewed & are unremarkable except as noted in Subjective Physical Exam Physical Exam: General: Awake, conversant Heart: S1, S2/regular rate and rhythm, no murmur rubs or gallops Lungs: Clear to auscultation bilaterally. Normal effort Abdomen: Distended abdomen. Shifting dullness. Abdomen is nontender. Positive bowel sounds Extremities: No clubbing/cyanosis. Trace bilateral edema Behavior: Appropriate, cooperative Results & Data Results & Data Vital Signs (Past 12 Hours) Vital Signs Temp Pulse Resp BP Pulse Ox O2 Del Method 04/28/24 15:07 36.5 C 86 18 109/76 97 Room Air 04/28/24 08:41 36.9 C 91 H 18 105/59 L 93 Room Air Laboratory Results Abnormal lab results 04/27/24 04/27/24 04/27/24 Range/Units 12:04 12:07 16:39 RBC (4.20-5.40) M/uL Hgb (12.0-16.0) g/dl Hct (37.0-47.0) % MCV (80.0-100.0) fL RDW Std Deviation (36.4-46.3) fL RDW Coeff of Claude (11.5-14.5) % [place] # (Auto) (0.11-0.59) K/uL ESR 65 H (0-30) mm/hr BUN (6-23) mg/dl Creatinine (0.6-1.2) mg/dl POC Glucose (70-99) mg/dl Calcium (8.6-10.3) mg/dl Total Bilirubin (0.2-1.0) mg/dl Alkaline Phosphatase (34-104) U/L C-Reactive Protein 3.29 H (0-0.5) mg/dl Albumin (3.4-5.0) gm/dl Albumin/Globulin Ratio (0.9-2) TSH 16.379 H (0.300-4.500) uIu/ml Urine Appearance Turbid A (Clear) Urine Protein 1+ H (Negative) Urine Ketones Trace H (Negative) Urine Blood 2+ H (Negative) Ur Leukocyte Esterase 3+ H (Negative) Urine WBC (Auto) >50 H (0-5) /hpf Urine RBC (Auto) >20 H (0-2) /hpf U Hyaline Cast (Auto) 6-10 H (0-2) /lpf U Epithel Cells (Auto) 11-20 H (0-2) /hpf Urine Bacteria (Auto) 1+ H (None Seen) U Random Total Protein 72.4 H (0-11.9) mg/dl Protein/Creatinin Ratio 0.6 H (0-0.2) 04/27/24 04/28/24 Range/Units 20:39 07:06 RBC 2.35 L (4.20-5.40) M/uL Hgb 7.6 L (12.0-16.0) g/dl Hct 23.6 L (37.0-47.0) % MCV 100.4 H (80.0-100.0) fL RDW Std Deviation 72.2 H (36.4-46.3) fL RDW Coeff of Claude 19.9 H (11.5-14.5) % [place] # (Auto) 1.02 H (0.11-0.59) K/uL ESR (0-30) mm/hr BUN 26 H (6-23) mg/dl Creatinine 1.85 H (0.6-1.2) mg/dl POC Glucose 115 H (70-99) mg/dl Calcium 8.3 L (8.6-10.3) mg/dl Total Bilirubin 1.7 H (0.2-1.0) mg/dl Alkaline Phosphatase 138 H (34-104) U/L C-Reactive Protein (0-0.5) mg/dl Albumin 2.6 L (3.4-5.0) gm/dl Albumin/Globulin Ratio 0.7 L (0.9-2) TSH (0.300-4.500) uIu/ml Urine Appearance (Clear) Urine Protein (Negative) Urine Ketones (Negative) Urine Blood (Negative) Ur Leukocyte Esterase (Negative) Urine WBC (Auto) (0-5) /hpf Urine RBC (Auto) (0-2) /hpf U Hyaline Cast (Auto) (0-2) /lpf U Epithel Cells (Auto) (0-2) /hpf Urine Bacteria (Auto) (None Seen) U Random Total Protein (0-11.9) mg/dl Protein/Creatinin Ratio (0-0.2) Diagnostic Findings Chest X-Ray 04/27/24 15:32 XR chest 1V portable CLINICAL HISTORY: shortness of breath TECHNIQUE: Single frontal radiograph of the chest was obtained. Comparison: None available at the time of this dictation. FINDINGS: No lines and tubes are seen. The cardiomediastinal silhouette is normal. The lungs are clear. No evidence of pleural effusion or pneumothorax. IMPRESSION: No acute abnormalities and in particular no radiographic evidence of pneumonia. ACT 112: Negative or not required by law. Electronically signed by: Colton Bourgeois M.D. 04/27/2024 4:07 PM PG Care Time/CCT Total # of Minutes Spent Total Time Spent with Patient: Total time spent is greater than 50% in coordination of care (as documented) at patient's floor/unit and/or counseling patient: Coding Level of Care Code 29279 SUB INP/OBS CARE 2/35MIN Diagnoses JESSICA (acute kidney injury) N17.9 Chills R68.83 Cirrhosis of liver K74.60 Fibromyalgia syndrome M79.7 Acquired hypothyroidism E03.9 Hypothyroidism type: acquired GERD (gastroesophageal reflux disease) K21.9 Abdominal ascites R18.8 (5) Hypothyroidism Hypothyroidism type: acquired Qualified Code(s): E03.9 - Hypothyroidism, unspecified
[2024-04-29 06:43] LABS: Hematocrit (blood only) 21.6 % (37.0-47.0); Hemoglobin 6.9 g/dl (12.0-16.0); Mean Corpuscular Hemoglobin 32.5 pg (25.0-34.0); Mean Corpuscular Hgb Conc 31.9 g/dL (32.0-36.0); Mean Corpuscular Volume 101.9 fL (80.0-100.0); Mean Platelet Volume 10.5 fL (9.4-12.4); Platelet Count 133 K/uL (130-400); RDW Coefficient of Variation 19.8 % (11.5-14.5); RDW Standard Deviation 72.8 fL (36.4-46.3); Red Blood Count 2.12 M/uL (4.20-5.40)
[2024-04-29 07:09] LABS: Anion Gap 5 (3-11); BUN Creatinine Ratio 13.4 (10-20); Blood Urea Nitrogen 25 mg/dl (6-23); Calcium 8.8 mg/dl (8.6-10.3); Carbon Dioxide 33 mmol/L (21-32); Chloride 101 mmol/L (98-107); Creatinine Clr Calc Pharmacy 36.5 ml/min; Glucose 75 mg/dl (70-99(Fasting)); Potassium 3.7 mmol/L (3.5-5.1); Sodium 139 mmol/L (136-145)
[2024-04-29 07:28] LABS: Ferritin 405.7 ng/ml (8-388)
[2024-04-29 07:31] LABS: Alanine Aminotransferase 15 U/L (7-52); Albumin Level 3.2 gm/dl (3.4-5.0); Alkaline Phosphatase 114 U/L (34-104); Aspartate Aminotransferase 24 U/L (13-39); Bilirubin,Total 2.4 mg/dl (0.2-1.0); Globulin 3.3 gm/dl (2.5-4.0); Iron 65 mcg/dl (35-150); Phosphorus 3.3 mg/dl (2.5-4.9); Total Protein 6.5 gm/dl (6.0-8.3); Unsaturated Iron Binding Cap < 55 mcg/dl (155-355)
[2024-04-29 11:05] LABS: Appearance Urine Cloudy (Clear); Bacteria Urine Automated 1+ (None Seen); Bilirubin Urine Negative (Negative); Blood Urine Negative (Negative); Color Urine Yellow; Glucose Urine UA Negative (Negative); Ketones Urine Negative (Negative); Leukocyte Esterase Urine 3+ (Negative); Nitrite Urine Negative (Negative); Protein Urine Trace (Negative); Specific Gravity Urine 1.013 (1.000-1.030); Urobilinogen Urine Negative (Negative); WBC Urine Automated >50 /hpf (0-5); pH Urine 5.5 (4.5-7.5)
[2024-04-29] MEDS ORDERED: SODIUM CHLORIDE 0.9% 100 ML IV PRN (11:50)
--- NOTE | 2024-04-29 11:52 | Nephrology Progress Note ---
Date of Service April 29, 2024 Assessment & Plan (1) Acute kidney injury superimposed on CKD: Plan: Non-oliguric. Presentation is suggestive of possible underlying HRSII. There is certainly increased TBW but decreased intravascular volume. Notable LE edema and abdominal ascites persist. Bumex 1 mg twice daily will be continued. IV albumin and octreotide started yesterday will be continued for an additional 24 hours. Low dose midodrine added today for relative hypotension. PRBC transfusion support has been ordered. Document strict I/O's. Repeat blood work has been ordered for the AM. Urine studies pending. Medications are appropriate for kidney function. (2) Cirrhosis of liver: Plan: MELD-Na 18. Followed by hepatology through [facility] as outpatient. Consider MRA for volume management in the future. Refractory ascites. No history of HE. (3) Anemia: Plan: Edita denies signs of acute blood loss. PRBC transfusion has been scheduled. I discussed the plan of care with Dr. Watson this AM. Admission and Anticipated Discharge Date Admission Date: April 29, 2024 Subjective No acute events overnight. Edita states that she feels "the same." She admits to some fatigue and decreased appetite. She states that she has difficulty with her pills because they make her feel nauseous. She also reports throwing up after taking some of her oral medications yesterday. She has not had a bowel movement and is feeling constipated. She has discussed this with her nurse. Edita does not want any stool softeners or laxatives at this time. She denies abdominal pain. She does not endorse fevers or chills. She does not endorse any melena, hematochezia, or signs of bleeding. She has never had a transfusion in the past. Review of Systems Review of Systems: All systems reviewed & are unremarkable except as noted in HPI & below Physical Exam Constitutional: + frail appearing; no acute distress Eyes: + anicteric sclerae; no conjunctival abn ormality ENMT: Mouth: + dry oral mucous membranes; no oral mucosal abnormality Neck: normal visual inspection and trachea midline Respiratory: normal respiratory effort Auscultation: lungs clear to auscultation bilaterally; no rales Cardiovascular: Rate/Rhythm: regular rate Heart Sounds: normal S1 and normal S2 Extremities: + edema (+3-4 extending to the thighs) Gastrointestinal (Abdomen): Inspection/Auscultation: + abdomen distended Percussion/Palpation: + ascites and + fluid wave; no guarding and abdomen not rigid Musculoskeletal: Extremities: no cyanosis and no clubbing Skin: no jaundice Neurologic: awake; not confused Motor/Sensory: no tremor and no asterixis Psychiatric: Orientation: alert and oriented x 3 Results & Data Vital Signs (Past 12 Hours) Vital Signs Temp Pulse Resp BP Pulse Ox O2 Del Method 04/29/24 07:26 36.6 C 77 14 107/73 97 Room Air Laboratory Results Laboratory Results - last 24 hr 04/29/24 04/29/24 04/29/24 06:01 08:09 09:43 WBC 5.20 RBC 2.12 L Hgb 6.9 L* Hct 21.6 L MCV 101.9 H MCH 32.5 MCHC 31.9 L RDW Std Deviation 72.8 H RDW Coeff of Claude 19.8 H Plt Count 133 MPV 10.5 Sodium 139 Potassium 3.7 Chloride 101 Carbon Dioxide 33 H Anion Gap 5 BUN 25 H Creatinine 1.87 H Est Cr Clr Drug Dosing 36.5 eGFR 31.59 BUN/Creatinine Ratio 13.4 Glucose 75 POC Glucose 80 Calcium 8.8 Phosphorus 3.3 Iron 65 TIBC TNP Unsaturated IBC < 55 L Transferrin % Sat TNP Ferritin 405.7 H Total Bilirubin 2.4 H AST 24 ALT 15 Alkaline Phosphatase 114 H Total Protein 6.5 Albumin 3.2 L Globulin 3.3 Albumin/Globulin Ratio 1.0 Urine Color Yellow Urine Appearance Cloudy A Urine pH 5.5 Ur Specific [place] 1.013 Urine Protein Trace H Urine Glucose (UA) Negative Urine Ketones Negative Urine Blood Negative Urine Nitrite Negative Urine Bilirubin Negative Urine Urobilinogen Negative Ur Leukocyte Esterase 3+ H Urine WBC (Auto) >50 H Urine RBC (Auto) 3-5 H U Hyaline Cast (Auto) 11-20 H U Epithel Cells (Auto) 3-5 H Urine Bacteria (Auto) 1+ H Ur Random Sodium Pending PG Care Time/CCT Total # of Minutes Spent Total Time Spent with Patient: Total time spent is greater than 50% in coordination of care (as documented) at patient's floor/unit and/or counseling patient: Coding Level of Care Code 67654 SUB INP/OBS CARE 3/50MIN Diagnoses Acute kidney injury superimposed on CKD N17.9; N18.9 Cirrhosis of liver K74.60 Anemia D64.9
[2024-04-29] MEDS: MIDODRINE HCL 2.5 MG TAB PO SCH (12:37)
--- NOTE | 2024-04-29 13:26 | Hospitalist Progress Note ---
Date of Service April 29, 2024 Assessment & Plan (1) JESSICA (acute kidney injury): Plan: Progressively worsening renal function. Cr risin from 1.18 in August to 1.9 on admission. Stable at 1.8 today Suspect due to change in diuretics although may be developing hepatorenal syndrome. She is not entirely clear of the medications she is taking. [employer] involved Continue reduced dose of 1mg Bumex BID [employer] started on IV albumin and octreotide Midodrine resumed Ordered a unit of blood (2) Chills: Plan: Monitor overnight for objective fever No abdominal pain on exam to suggest SBP WBC elevated on admission but normal today, procalcitonin level normal today Blood cultures negative over 24 hours (3) Cirrhosis of liver: Plan: Longstanding under [facility] hepatology MELD 18 Consideration for TIPS given refractory ascites without hepatic encephalopathy however this can be done on outpatient basis (4) Fibromyalgia syndrome: Plan: Continue gabapentin PRN (5) Hypothyroidism: Plan: TSH ordered as recent high with reflex to T4 Continue levothyroxine (6) GERD (gastroesophageal reflux disease): Plan: Switch nexium (7) Abdominal ascites: Plan VTE Prophylaxis - deferred due to thrombocytopenia Diet - low Na, T2DM Admission and Anticipated Discharge Date Admission Date: April 29, 2024 Subjective Patient was seen and examined at 9:45 AM. We talked about low hemoglobin. She did not notice any bleeding from anywhere. She consented for blood transfusion. She denied any new complaints. Review of Systems Review of Systems: All systems reviewed & are unremarkable except as noted in Subjective Physical Exam Physical Exam: General: Awake, conversant Heart: S1, S2/regular rate and rhythm, no murmur rubs or gallops Lungs: Clear to auscultation bilaterally. Normal effort Abdomen: Distended abdomen. Shifting dullness. Abdomen is nontender. Positive bowel sounds Extremities: No clubbing/cyanosis. 1+ bilateral edema Behavior: Appropriate, cooperative Results & Data Results & Data Vital Signs (Past 12 Hours) Vital Signs Temp Pulse Pulse Resp BP BP Pulse Ox 04/29/24 13:04 36.6 C 85 16 121/82 96 04/29/24 12:49 36.4 C 87 18 123/83 94 04/29/24 12:29 36.4 C 91 H 18 123/84 99 04/29/24 07:26 36.6 C 77 14 107/73 97 O2 Del Method 04/29/24 13:04 04/29/24 12:49 04/29/24 12:29 04/29/24 07:26 Room Air Laboratory Results Abnormal lab results 04/27/24 04/29/24 04/29/24 Range/Units 12:07 06:01 09:43 RBC 2.12 L (4.20-5.40) M/uL Hgb 6.9 L* (12.0-16.0) g/dl Hct 21.6 L (37.0-47.0) % MCV 101.9 H (80.0-100.0) fL MCHC 31.9 L (32.0-36.0) g/dL RDW Std Deviation 72.8 H (36.4-46.3) fL RDW Coeff of Claude 19.8 H (11.5-14.5) % Carbon Dioxide 33 H (21-32) mmol/L BUN 25 H (6-23) mg/dl Creatinine 1.87 H (0.6-1.2) mg/dl Unsaturated IBC < 55 L (155-355) mcg/dl Ferritin 405.7 H (8-388) ng/ml Total Bilirubin 2.4 H (0.2-1.0) mg/dl Alkaline Phosphatase 114 H (34-104) U/L Albumin 3.2 L (3.4-5.0) gm/dl Urine Appearance Cloudy A (Clear) Urine Protein Trace H (Negative) Ur Leukocyte Esterase 3+ H (Negative) Urine WBC (Auto) >50 H (0-5) /hpf Urine RBC (Auto) 3-5 H (0-2) /hpf U Hyaline Cast (Auto) 11-20 H (0-2) /lpf U Epithel Cells (Auto) 3-5 H (0-2) /hpf Urine Bacteria (Auto) 1+ H (None Seen) Crossmatch See Detail PG Care Time/CCT Total # of Minutes Spent Total Time Spent with Patient: Total time spent is greater than 50% in coordination of care (as documented) at patient's floor/unit and/or counseling patient: Coding Level of Care Code 26439 SUB INP/OBS CARE 2/35MIN Diagnoses JESSICA (acute kidney injury) N17.9 Chills R68.83 Cirrhosis of liver K74.60 Fibromyalgia syndrome M79.7 Acquired hypothyroidism E03.9 Hypothyroidism type: acquired GERD (gastroesophageal reflux disease) K21.9 Abdominal ascites R18.8 (5) Hypothyroidism Hypothyroidism type: acquired Qualified Code(s): E03.9 - Hypothyroidism, unspecified
[2024-04-29] MEDS ORDERED: DEXTROSE 50% 50 ML SYRINGE IV PRN (16:45)
[2024-04-29] MEDS ORDERED: GLUCOSE 40% GEL 15 GM TUBE PO PRN (16:45)
[2024-04-29] MEDS ORDERED: CARBOHYDRATES FOR HYPOGLYCEMIA PO PRN (16:45)
[2024-04-29] MEDS ORDERED: GLUCOSE 10 TAB/TUBE PO PRN (16:45)
[2024-04-29] MEDS ORDERED: GLUCAGON FOR INJ 1 MG VIAL SQ PRN (16:45)
[2024-04-30] MEDS: ACETAMINOPHEN 325 MG TAB PO PRN (06:09)
[2024-04-30 08:25] LABS: Hematocrit (blood only) 24.9 % (37.0-47.0); Hemoglobin 7.8 g/dl (12.0-16.0); Mean Corpuscular Hemoglobin 32.1 pg (25.0-34.0); Mean Corpuscular Hgb Conc 31.3 g/dL (32.0-36.0); Mean Corpuscular Volume 102.5 fL (80.0-100.0); Mean Platelet Volume 10.7 fL (9.4-12.4); Platelet Count 136 K/uL (130-400); RDW Coefficient of Variation 19.9 % (11.5-14.5); RDW Standard Deviation 73.2 fL (36.4-46.3); Red Blood Count 2.43 M/uL (4.20-5.40)
[2024-04-30 08:40] LABS: Albumin Globulin Ratio 1.3 (0.9-2); BUN Creatinine Ratio 11.8 (10-20); Bilirubin,Total 3.3 mg/dl (0.2-1.0); Calcium 9.3 mg/dl (8.6-10.3); Creatinine Clr Calc Pharmacy 36.5 ml/min; Globulin 3.1 gm/dl (2.5-4.0); Potassium 3.4 mmol/L (3.5-5.1); Total Protein 7.1 gm/dl (6.0-8.3)
--- NOTE | 2024-04-30 09:53 | Nephrology Progress Note ---
Date of Service April 30, 2024 Assessment & Plan (1) Acute kidney injury superimposed on CKD: Plan: Non-oliguric. 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 Notable LE edema and abdominal ascites persist. Bumex 1 mg twice daily will be continued. IV albumin and octreotide started Tuesday will be continued pending planned paracentesis today. Low dose midodrine added today for relative hypotension yesterday. Document strict I/O's. Repeat blood work has been ordered for the AM. Urine studies reviewed this AM: >50 WBC, 3-5 RBC, hyaline casts. Bridgette 16 (despite Bumex). Medications are appropriate for kidney function. (2) Cirrhosis of liver: Plan: MELD-Na 18. Followed by hepatology through [facility] as outpatient. Refractory a scites. No history of HE. Bili trending up slightly. Clinical presentation concerning for progressive decompensated liver disease. Paracentesis scheduled for today. Remains on scheduled IV albumin 25 g q 8 hour, please arrange an additional ~50 gm immediately post paracentesis. (3) Anemia: Plan: Edita denies signs of acute blood loss. PRBC transfusion was provided yesterday with appropriate response. Admission and Anticipated Discharge Date Admission Date: April 29, 2024 Subjective No acute events overnight. Edita reports increased abdominal distention and associated discomfort. It is difficult to take a deep breath when he has tense ascites like this. She also reports some mild associated nausea and decreased appetite. Edema persists unchanged. She reports good urine output in response to diuretics. She states that she did not tolerate spironolactone in the past - notable nausea with the medication. Review of Systems Review of Systems: All systems reviewed & are unremarkable except as noted in HPI & below Physical Exam Constitutional: + ill appearing and + frail appearing; n o acute distress Eyes: + anicteric sclerae; no conjunctival abn ormality ENMT: Mouth: + dry oral mucous membranes Neck: normal visual inspection and trachea midline Respiratory: normal respiratory effort Auscultation: lungs clear to auscultation bilaterally Cardiovascular: Rate/Rhythm: regular rate Heart Sounds: normal S1 and normal S2 Extremities: + edema (+3-4 extending to the thighs) Gastrointestinal (Abdomen): Inspection/Auscultation: + abdomen distended Percussion/Palpation: + ascites and + fluid wave; no guarding and abdomen not rigid Musculoskeletal: Extremities: no cyanosis and no clubbing Skin: no jaundice Neurologic: Motor/Sensory: no tremor and no asterixis Psychiatric: Orientation: alert and oriented x 3 Results & Data Vital Signs (Past 12 Hours) Vital Signs Temp Pulse Resp BP Pulse Ox O2 Del Method 04/30/24 07:21 36.8 C 90 16 122/78 96 Room Air 04/30/24 07:20 Room Air Laboratory Results Laboratory Results - last 24 hr 04/27/24 04/29/24 04/30/24 12:07 09:43 07:40 WBC 6.50 RBC 2.43 L Hgb 7.8 L Hct 24.9 L MCV 102.5 H MCH 32.1 MCHC 31.3 L RDW Std Deviation 73.2 H RDW Coeff of Claude 19.9 H Plt Count 136 MPV 10.7 Sodium 138 Potassium 3.4 L Chloride 99 Carbon Dioxide 32 Anion Gap 7 BUN 22 Creatinine 1.87 H Est Cr Clr Drug Dosing 36.5 eGFR 31.59 BUN/Creatinine Ratio 11.8 Glucose 140 H POC Glucose Calcium 9.3 Total Bilirubin 3.3 H AST 23 ALT 13 Alkaline Phosphatase 100 Total Protein 7.1 Albumin 4.0 Globulin 3.1 Albumin/Globulin Ratio 1.3 Urine Color Yellow Urine Appearance Cloudy A Urine pH 5.5 Ur Specific [place] 1.013 Urine Protein Trace H Urine Glucose (UA) Negative Urine Ketones Negative Urine Blood Negative Urine Nitrite Negative Urine Bilirubin Negative Urine Urobilinogen Negative Ur Leukocyte Esterase 3+ H Urine WBC (Auto) >50 H Urine RBC (Auto) 3-5 H U Hyaline Cast (Auto) 11-20 H U Epithel Cells (Auto) 3-5 H Urine Bacteria (Auto) 1+ H Ur Random Sodium 16 Blood Type A Negative Antibody Screen NEGATIVE Crossmatch See Detail 04/30/24 07:52 WBC RBC Hgb Hct MCV MCH MCHC RDW Std Deviation RDW Coeff of Claude Plt Count MPV Sodium Potassium Chloride Carbon Dioxide Anion Gap BUN Creatinine Est Cr Clr Drug Dosing eGFR BUN/Creatinine Ratio Glucose POC Glucose 147 H Calcium Total Bilirubin AST ALT Alkaline Phosphatase Total Protein Albumin Globulin Albumin/Globulin Ratio Urine Color Urine Appearance Urine pH Ur Specific [place] Urine Protein Urine Glucose (UA) Urine Ketones Urine Blood Urine Nitrite Urine Bilirubin Urine Urobilinogen Ur Leukocyte Esterase Urine WBC (Auto) Urine RBC (Auto) U Hyaline Cast (Auto) U Epithel Cells (Auto) Urine Bacteria (Auto) Ur Random Sodium Blood Type Antibody Screen Crossmatch PG Care Time/CCT Total # of Minutes Spent Total Time Spent with Patient: Total time spent is greater than 50% in coordination of care (as documented) at patient's floor/unit and/or counseling patient: Coding Level of Care Code 48568 SUB INP/OBS CARE 3/50MIN Diagnoses Acute kidney injury superimposed on CKD N17.9; N18.9 Cirrhosis of liver K74.60 Anemia D64.9
[2024-04-30] MEDS ORDERED: GLUCAGON FOR INJ 1 MG VIAL SQ PRN (10:04)
[2024-04-30] MEDS ORDERED: DEXTROSE 50% 50 ML SYRINGE IV PRN (10:04)
[2024-04-30] MEDS: POTASSIUM CHLORIDE CRTAB 20 MEQ TABCR PO STA (11:50)
[2024-04-30] MEDS: INSULIN ASPART PER UNIT CHARGE SC SCH (12:04)
--- NOTE | 2024-04-30 14:23 | Ultrasound Report ---
ULTRASOUND-GUIDED PARACENTESIS CLINICAL HISTORY: Ascites PROCEDURE: Procedure and risks were explained. Informed consent was obtained. A final timeout was com pleted. The abdomen was prepped and draped in sterile fashion. 1% lidocaine was utilized for skin ane sthesia. Utilizing ultrasound guidance, a 5 Bengali safety centesis catheter was advanced into the left lower q uadrant pocket of ascites. Ultrasound images were obtained. 4 L of yellow-colored ascites fluid was r emoved and discarded. The catheter was removed and Band-Aid applied. The patient tolerated the proced ure well. Vital signs will be monitored postprocedure. IMPRESSION: Ultrasound-guided paracentesis as above. Performed, dictated, and signed by Jason Lea PA-C; to be co-signed by Dr. Parrish Lebron. Electronically signed by: Parrish Lebron M.D. 04/30/2024 3:44 PM
--- NOTE | 2024-04-30 14:31 | Hospitalist Progress Note ---
Date of Service April 30, 2024 Assessment & Plan (1) JESSICA (acute kidney injury): Plan: Progressively worsening renal function. Cr risin from 1.18 in August to 1.9 on admission. Stable at 1.8 today Suspect due to change in diuretics although may be developing hepatorenal syndrome. She is not entirely clear of the medications she is taking. [employer] involved Continue reduced dose of 1mg Bumex BID [employer] started on IV albumin and octreotide Midodrine resumed She got a unit of blood on 04/29 (2) Chills: Plan: Monitor overnight for objective fever No abdominal pain on exam to suggest SBP WBC elevated on admission but normal today, procalcitonin level normal today Blood cultures negative (3) Cirrhosis of liver: Plan: Longstanding under [facility] hepatology MELD 18 Consideration for TIPS given refractory ascites without hepatic encephalopathy however this can be done on outpatient basis Ordered for IR guided therapeutic paracentesis (4) Fibromyalgia syndrome: Plan: Continue gabapentin PRN (5) Hypothyroidism: Plan: TSH ordered as recent high with reflex to T4 Continue levothyroxine (6) GERD (gastroesophageal reflux disease): Plan: Switch nexium (7) Abdominal ascites: Plan VTE Prophylaxis: SCDs Diet - low Na, T2DM Admission and Anticipated Discharge Date Admission Date: April 29, 2024 Subjective Patient complains of abdominal distention and leg swelling. She wants her Lasix. Says that Bumex is not working to keep her fluid down. I was informed by IR that she is due for paracentesis. Ordered paracentesis inpatient Review of Systems Review of Systems: All systems reviewed & are unremarkable except as noted in Subjective Physical Exam Physical Exam: General: Awake, conversant Heart: S1, S2/regular rate and rhythm, no murmur rubs or gallops Lungs: Clear to auscultation bilaterally. Normal effort Abdomen: Distended abdomen. Shifting dullness. Abdomen is nontender. Positive bowel sounds Extremities: No clubbing/cyanosis. 1+ bilateral edema Behavior: Appropriate, cooperative Results & Data Results & Data Vital Signs (Past 12 Hours) Vital Signs Temp Pulse Resp BP Pulse Ox O2 Del Method 04/30/24 14:09 36.8 C 91 H 16 137/89 97 Room Air 04/30/24 07:21 36.8 C 90 16 122/78 96 Room Air 04/30/24 07:20 Room Air Laboratory Results Abnormal lab results 04/27/24 04/30/24 04/30/24 Range/Units 12:07 07:40 07:52 RBC 2.43 L (4.20-5.40) M/uL Hgb 7.8 L (12.0-16.0) g/dl Hct 24.9 L (37.0-47.0) % MCV 102.5 H (80.0-100.0) fL MCHC 31.3 L (32.0-36.0) g/dL RDW Std Deviation 73.2 H (36.4-46.3) fL RDW Coeff of Claude 19.9 H (11.5-14.5) % Potassium 3.4 L (3.5-5.1) mmol/L Creatinine 1.87 H (0.6-1.2) mg/dl Glucose 140 H (70-99(Fasting)) mg/dl POC Glucose 147 H (70-99) mg/dl Total Bilirubin 3.3 H (0.2-1.0) mg/dl Crossmatch See Detail 04/30/24 Range/Units 11:44 RBC (4.20-5.40) M/uL Hgb (12.0-16.0) g/dl Hct (37.0-47.0) % MCV (80.0-100.0) fL MCHC (32.0-36.0) g/dL RDW Std Deviation (36.4-46.3) fL RDW Coeff of Claude (11.5-14.5) % Potassium (3.5-5.1) mmol/L Creatinine (0.6-1.2) mg/dl Glucose (70-99(Fasting)) mg/dl POC Glucose 163 H (70-99) mg/dl Total Bilirubin (0.2-1.0) mg/dl Crossmatch PG Care Time/CCT Total # of Minutes Spent Total Time Spent with Patient: Total time spent is greater than 50% in coordination of care (as documented) at patient's floor/unit and/or counseling patient: Coding Level of Care Code 57652 SUB INP/OBS CARE 2/35MIN Diagnoses JESSICA (acute kidney injury) N17.9 Chills R68.83 Cirrhosis of liver K74.60 Fibromyalgia syndrome M79.7 Acquired hypothyroidism E03.9 Hypothyroidism type: acquired GERD (gastroesophageal reflux disease) K21.9 Abdominal ascites R18.8 (5) Hypothyroidism Hypothyroidism type: acquired Qualified Code(s): E03.9 - Hypothyroidism, unspecified
[2024-04-30] MEDS: POTASSIUM CHLORIDE 20 MEQ/15 ML UDC PO STA (15:08)
--- NOTE | 2024-05-01 05:35 | Electrocardiogram Report ---
Test Reason : Blood Pressure : */* mmHG Vent. Rate : 106 BPM Atrial Rate : 100 BPM P-R Int : 140 ms QRS Dur : 74 ms QT Int : 344 ms P-R-T Axes : -6 -22 21 degrees QTcB Int : 456 ms Sinus tachycardia Low voltage QRS Septal infarct , age undetermined Anterior infarct Abnormal ECG When compared with ECG of 10-Feb-2024 23:51, Septal infarct is now Present Confirmed by Bernardino Landry ([id number] on 05/01/2024 5:34:59 AM Referred By: Alex Correa Confirmed By: Bernardino Landry
--- NOTE | 2024-05-01 05:36 | Electrocardiogram Report ---
Test Reason : Blood Pressure : */* mmHG Vent. Rate : 94 BPM Atrial Rate : 94 BPM P-R Int : 162 ms QRS Dur : 68 ms QT Int : 340 ms P-R-T Axes : 21 -12 20 degrees QTcB Int : 425 ms Normal sinus rhythm Low voltage QRS Poor R wave progression, consider anterior VT vs. lead placement vs. LVH Nonspecific T wave abnormality Abnormal ECG When compared with ECG of 27-Apr-2024 12:08, No significant change Confirmed by Bernardino Landry ([id number] on 05/01/2024 5:35:48 AM Referred By: Alex Correa Confirmed By: Bernardino Landry
[2024-05-01] MEDS: CARBOHYDRATES FOR HYPOGLYCEMIA PO PRN (07:48)
[2024-05-01 09:51] LABS: Albumin Globulin Ratio 1.7 (0.9-2); BUN Creatinine Ratio 9.7 (10-20); Bilirubin,Total 2.8 mg/dl (0.2-1.0); Calcium 9.2 mg/dl (8.6-10.3); Creatinine Clr Calc Pharmacy 36.9 ml/min; Globulin 2.3 gm/dl (2.5-4.0); Potassium 4.1 mmol/L (3.5-5.1); Total Protein 6.3 gm/dl (6.0-8.3)
[2024-05-01 09:53] LABS: Hematocrit (blood only) 23.1 % (37.0-47.0); Hemoglobin 7.1 g/dl (12.0-16.0); Mean Corpuscular Hgb Conc 30.7 g/dL (32.0-36.0); Mean Corpuscular Volume 104.1 fL (80.0-100.0); Mean Platelet Volume 10.6 fL (9.4-12.4); Platelet Count 110 K/uL (130-400); RDW Coefficient of Variation 19.9 % (11.5-14.5); Red Blood Count 2.22 M/uL (4.20-5.40); White Blood Count 4.43 K/ul (4.8-10.8)
--- NOTE | 2024-05-01 10:36 | Nephrology Progress Note ---
Date of Service May 01, 2024 Assessment & Plan (1) Acute kidney injury superimposed on CKD: Plan: Non-oliguric. 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 Notable LE edema and abdominal ascites persist. Continue diuretics to encourage urine output. Edita declined MRA therapy. She did not feel that she tolerated it well in the past. IV albumin and octreotide can be stopped today. An additional dose of albumin can be provided following paracentesis. I discussed the plan of care with Dr. Watson. Continue midodrine for hypotension. Document strict I/O's. Repeat blood work tomorrow AM. Medications are appropriate for kidney function. (2) Cirrhosis of liver: Plan: MELD-Na 18. Followed by hepatology through [facility] as outpatient. Refractory ascites. No history of HE. Clinical presentation concerning for progressive decompensated liver disease. (3) Anemia: Plan: Edita denies signs of GI blood loss. No bowel movement in past 24 hours. PRBC transfusion was provided 04/29. additional transfusion support PRN + GI follow up encouraged. Admission and Anticipated Discharge Date Admission Date: April 29, 2024 Subjective No acute events overnight. Paracentesis for 4 L completed yesterday. Edita continues to endorse abdominal distention and discomfort. She otherwise feels well. Review of Systems Review of Systems: All systems reviewed & are unremarkable except as noted in HPI & below Physical Exam Constitutional: + frail appearing; no acute distress Eyes: + anicteric sclerae; no conjunctival abn ormality ENMT: Mouth: + dry oral mucous membranes; no oral mucosal abnormality Neck: normal visual inspection and trachea midline Respiratory: normal respiratory effort Auscultation: lungs clear to auscultation bilaterally; no rales Cardiovascular: Rate/Rhythm: regular rate Heart Sounds: normal S1 and normal S2 Extremities: + edema (+3 extending to the thighs) Gastrointestinal (Abdomen): Inspection/Auscultation: + abdomen distended Percussion/Palpation: + ascites and + fluid wave; no guarding and abdomen not rigid Musculoskeletal: Extremities: no cyanosis and no clubbing Skin: + pallor; no jaundice Neurologic: awake; not confused Motor/Sensory: no tremor and no asterixis Psychiatric: Orientation: alert and oriented x 3 Results & Data Vital Signs (Past 12 Hours) Vital Signs Temp Pulse Resp BP Pulse Ox O2 Del Method 05/01/24 08:00 36.7 C 90 16 113/74 95 Room Air 04/30/24 23:18 Room Air PG Care Time/CCT Total # of Minutes Spent Total Time Spent with Patient: Total time spent is greater than 50% in coordination of care (as documented) at patient's floor/unit and/or counseling patient: Coding Level of Care Code 60059 SUB INP/OBS CARE 3/50MIN Diagnoses Acute kidney injury superimposed on CKD N17.9; N18.9 Cirrhosis of liver K74.60 Anemia D64.9
[2024-05-01 11:33] LABS: Anisocytosis Present; Basophils # (auto) 0.02 K/uL (0.00-0.20); Basophils % (auto) 0.5 %; Eosinophils # (auto) 0.07 K/uL (0.00-0.50); Eosinophils % (auto) 1.6 %; Immature Granulocytes # (auto) 0.01 K/uL (0.01-0.20); Immature Granulocytes % (auto) 0.2 %; Lymphocytes # (auto) 1.29 K/uL (1.20-3.40); Lymphocytes % (auto) 29.1 %; Monocytes # (auto) 0.55 K/uL (0.11-0.59); Monocytes % (auto) 12.4 %; Neutrophils # (auto) 2.49 K/uL (1.40-6.50); Neutrophils % (auto) 56.2 %; Polychromasia 1+; Target Cells 1+
--- NOTE | 2024-05-01 15:26 | Hospitalist Progress Note ---
Date of Service May 01, 2024 Assessment & Plan (1) JESSICA (acute kidney injury): Plan: Progressively worsening renal function. Cr risin from 1.18 in August to 1.9 on admission. Stable at 1.8 today Suspect due to change in diuretics although may be developing hepatorenal syndrome. She is not entirely clear of the medications she is taking. Product Applications Engineer involved Continue reduced dose of 1mg Bumex BID Product Applications Engineer started on IV albumin and octreotide. DC today. 1 dose of albumin post paracentesis Midodrine resumed She got a unit of blood on 04/29 (2) Chills: Plan: Monitor overnight for objective fever No abdominal pain on exam to suggest SBP WBC elevated on admission but normal today, procalcitonin level normal today Blood cultures negative (3) Cirrhosis of liver: Plan: Longstanding under [facility] hepatology MELD 18 Consideration for TIPS given refractory ascites without hepatic encephalopathy however this can be done on outpatient basis Patient had IR guided therapeutic paracentesis, had 4 L removed on 04/30. She is requesting another paracentesis. Noted pancytopenia. Likely related to cirrhosis. Monitor CBC (4) Fibromyalgia syndrome: Plan: Continue gabapentin PRN (5) Hypothyroidism: Plan: TSH ordered as recent high with reflex to T4 Continue levothyroxine (6) GERD (gastroesophageal reflux disease): Plan: Switch nexium (7) Abdominal ascites: Plan VTE Prophylaxis: SCDs Diet - low Na, T2DM I spoke to the patient's mother on the phone on 04/30. Informed her about her clinical scenario. Admission and Anticipated Discharge Date Admission Date: April 29, 2024 Subjective Patient was seen and examined at 10:15 AM. She says that she feels like her belly is still quite swollen. She would like another paracentesis. She says that she had a bowel movement this morning that was brown appearing. No blood or black stools. Review of Systems Review of Systems: All systems reviewed & are unremarkable except as noted in Subjective Physical Exam Physical Exam: General: Awake, conversant Heart: S1, S2/regular rate and rhythm, no murmur rubs or gallops Lungs: Clear to auscultation bilaterally. Normal effort Abdomen: Distended abdomen. Shifting dullness. Abdomen is nontender. Positive bowel sounds Extremities: No clubbing/cyanosis. 1+ bilateral edema Behavior: Appropriate, cooperative Results & Data Results & Data Vital Signs (Past 12 Hours) Vital Signs Temp Pulse Resp BP BP Pulse Ox O2 Del Method 05/01/24 11:20 36.9 C 85 14 101/59 L 93 Room Air 05/01/24 08:00 36.7 C 90 16 113/74 95 Room Air Laboratory Results Abnormal lab results 04/30/24 04/30/24 05/01/24 Range/Units 16:40 20:04 07:33 WBC (4.8-10.8) K/ul RBC (4.20-5.40) M/uL Hgb (12.0-16.0) g/dl Hct (37.0-47.0) % MCV (80.0-100.0) fL MCHC (32.0-36.0) g/dL RDW Std Deviation (36.4-46.3) fL RDW Coeff of Claude (11.5-14.5) % Plt Count (130-400) K/uL Creatinine (0.6-1.2) mg/dl BUN/Creatinine Ratio (10-20) Glucose (70-99(Fasting)) mg/dl POC Glucose 163 H 111 H 57 L* (70-99) mg/dl Total Bilirubin (0.2-1.0) mg/dl Globulin (2.5-4.0) gm/dl 05/01/24 05/01/24 05/01/24 Range/Units 07:39 08:07 08:16 WBC (4.8-10.8) K/ul RBC (4.20-5.40) M/uL Hgb (12.0-16.0) g/dl Hct (37.0-47.0) % MCV (80.0-100.0) fL MCHC (32.0-36.0) g/dL RDW Std Deviation (36.4-46.3) fL RDW Coeff of Claude (11.5-14.5) % Plt Count (130-400) K/uL Creatinine (0.6-1.2) mg/dl BUN/Creatinine Ratio (-20) Glucose (70-99(Fasting)) mg/dl POC Glucose 57 L* 60 L* 65 L* (70-99) mg/dl Total Bilirubin (0.2-1.0) mg/dl Globulin (2.5-4.0) gm/dl 05/01/24 05/01/24 Range/Units 09:04 11:39 WBC 4.43 L (4.8-10.8) K/ul RBC 2.22 L (4.20-5.40) M/uL Hgb 7.1 L (12.0-16.0) g/dl Hct 23.1 L (37.0-47.0) % MCV 104.1 H (80.0-100.0) fL MCHC 30.7 L (32.0-36.0) g/dL RDW Std Deviation 74.0 H (36.4-46.3) fL RDW Coeff of Claude 19.9 H (11.5-14.5) % Plt Count 110 L (130-400) K/uL Creatinine 1.85 H (0.6-1.2) mg/dl BUN/Creatinine Ratio 9.7 L (10-20) Glucose 101 H (70-99(Fasting)) mg/dl POC Glucose 109 H (70-99) mg/dl Total Bilirubin 2.8 H (0.2-1.0) mg/dl Globulin 2.3 L (2.5-4.0) gm/dl Diagnostic Findings Abnormal lab results 04/30/24 04/30/24 05/01/24 Range/Units 16:40 20:04 07:33 WBC (4.8-10.8) K/ul RBC (4.20-5.40) M/uL Hgb (12.0-16.0) g/dl Hct (37.0-47.0) % MCV (80.0-100.0) fL MCHC (32.0-36.0) g/dL RDW Std Deviation (36.4-46.3) fL RDW Coeff of Claude (11.5-14.5) % Plt Count (130-400) K/uL Creatinine (0.6-1.2) mg/dl BUN/Creatinine Ratio (10-20) Glucose (70-99(Fasting)) mg/dl POC Glucose 163 H 111 H 57 L* (70-99) mg/dl Total Bilirubin (0.2-1.0) mg/dl Globulin (2.5-4.0) gm/dl 05/01/24 05/01/24 05/01/24 Range/Units 07:39 08:07 08:16 WBC (4.8-10.8) K/ul RBC (4.20-5.40) M/uL Hgb (12.0-16.0) g/dl Hct (37.0-47.0) % MCV (80.0-100.0) fL MCHC (32.0-36.0) g/dL RDW Std Deviation (36.4-46.3) fL RDW Coeff of Claude (11.5-14.5) % Plt Count (130-400) K/uL Creatinine (0.6-1.2) mg/dl BUN/Creatinine Ratio (10-20) Glucose (70-99(Fasting)) mg/dl POC Glucose 57 L* 60 L* 65 L* (70-99) mg/dl Total Bilirubin (0.2-1.0) mg/dl Globulin (2.5-4.0) gm/dl 05/01/24 05/01/24 Range/Units 09:04 11:39 WBC 4.43 L (4.8-10.8) K/ul RBC 2.22 L (4.20-5.40) M/uL Hgb 7.1 L (12.0-16.0) g/dl Hct 23.1 L (37.0-47.0) % MCV 104.1 H (80.0-100.0) fL MCHC 30.7 L (32.0-36.0) g/dL RDW Std Deviation 74.0 H (36.4-46.3) fL RDW Coeff of Claude 19.9 H (11.5-14.5) % Plt Count 110 L (130-400) K/uL Creatinine 1.85 H (0.6-1.2) mg/dl BUN/Creatinine Ratio 9.7 L (10-20) Glucose 101 H (70-99(Fasting)) mg/dl POC Glucose 109 H (70-99) mg/dl Total Bilirubin 2.8 H (0.2-1.0) mg/dl Globulin 2.3 L (2.5-4.0) gm/dl PG Care Time/CCT Total # of Minutes Spent Total Time Spent with Patient: Total time spent is greater than 50% in coordination of care (as documented) at patient's floor/unit and/or counseling patient: Coding Level of Care Code 76261 SUB INP/OBS CARE 2MIN Diagnoses JESSICA (acute kidney injury) N17.9 Chills R68.83 Cirrhosis of liver K74.60 Fibromyalgia syndrome M79.7 Acquired hypothyroidism E03.9 Hypothyroidism type: acquired GERD (gastroesophageal reflux disease) K21.9 Abdominal ascites R18.8 (5) Hypothyroidism Hypothyroidism type: acquired Qualified Code(s): E03.9 - Hypothyroidism, unspecified
--- NOTE | 2024-05-01 15:38 | Ultrasound Report ---
ULTRASOUND-GUIDED PARACENTESIS CLINICAL HISTORY: Ascites PROCEDURE: Procedure and risks were explained. Informed consent was obtained. A final timeout was com pleted. The abdomen was prepped and draped in sterile fashion. 1% lidocaine was utilized for skin ane sthesia. Utilizing ultrasound guidance, a 5 Kiswahili safety centesis catheter was advanced into the left lower q uadrant pocket of ascites. Ultrasound images were obtained. 3 L of yellow-colored ascites fluid was r emoved and discarded. The catheter was removed and Band-Aid applied. The patient tolerated the proced ure well. Vital signs will be monitored postprocedure. IMPRESSION: Ultrasound-guided paracentesis as above. Performed, dictated, and signed by Jason Lea PA-C; to be co-signed by Dr. Nitish Lyon. Electronically signed by: Nitish Lyon M.D. 05/01/2024 3:44 PM
[2024-05-01] MEDS: ALBUMIN 25% 25 GM/100 ML VIAL IV ONE (18:05)
[2024-05-01] MEDS: LANTUS PER UNIT CHARGE SQ SCH (22:42)
[2024-05-02 07:24] LABS: Hematocrit (blood only) 21.1 % (37.0-47.0); Hemoglobin 6.9 g/dl (12.0-16.0); Mean Corpuscular Hemoglobin 32.9 pg (25.0-34.0); Mean Corpuscular Hgb Conc 32.7 g/dL (32.0-36.0); Mean Corpuscular Volume 100.5 fL (80.0-100.0); Mean Platelet Volume 10.8 fL (9.4-12.4); Platelet Count 112 K/uL (130-400); RDW Coefficient of Variation 19.6 % (11.5-14.5); RDW Standard Deviation 70.3 fL (36.4-46.3); White Blood Count 5.13 K/ul (4.8-10.8)
[2024-05-02] MEDS ORDERED: SODIUM CHLORIDE 0.9% 100 ML IV PRN (07:25)
[2024-05-02 07:46] LABS: Albumin Globulin Ratio 1.6 (0.9-2); Albumin Level 3.6 gm/dl (3.4-5.0); BUN Creatinine Ratio 7.9 (10-20); Bilirubin,Total 2.3 mg/dl (0.2-1.0); Calcium 8.8 mg/dl (8.6-10.3); Creatinine Clr Calc Pharmacy 41.4 ml/min; Globulin 2.2 gm/dl (2.5-4.0); Total Protein 5.8 gm/dl (6.0-8.3)
[2024-05-02 07:59] LABS: INR 1.3 (0.9-1.1); Prothrombin Time 13.9 Seconds (9.0-12.0)
[2024-05-02] MEDS: SIMETHICONE 80 MG CHEW PO PRN (11:47)
--- NOTE | 2024-05-02 12:23 | Nephrology Progress Note ---
Date of Service May 02, 2024 Assessment & Plan (1) Acute kidney injury superimposed on CKD: Plan: Non-oliguric. 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 Continue diuretics to encourage urine output. Rico may declined MRA therapy. She did not feel that she tolerated it well in the past. IV albumin and octreotide stopped yesterday. Continue midodrine for hypotension. Close outpatient follow up in the nephrology clinic will be required. Medications are appropriate for kidney function. (2) Cirrhosis of liver: Plan: MELD-Na 18. Followed by hepatology through [facility] as outpatient. Refractory ascites. No history of HE. Clinical presentation concerning for progressive decompensated liver disease. (3) Anemia: Plan: Edita denies signs of GI blood loss. PRBC transfusion was provided 04/29. Additional 1 unit PRBC infusing today. Admission and Anticipated Discharge Date Admission Date: April 29, 2024 Subjective No acute events overnight. Edita reported feeling well this AM. She hopes to be discharged home. She continues to deny melena or hematochezia. She denies abdominal pain or discomfort. Improvement following paracentesis. She continues to deny hematochezia or melena. PRBC transfusion infusing. Review of Systems Review of Systems: All systems reviewed & are unremarkable except as noted in HPI & below Physical Exam Constitutional: + frail appearing; no acute distress Eyes: + anicteric sclerae ENMT: Mouth: oral mucous membranes not dry Neck: normal visual inspection and trachea midline Respiratory: normal respiratory effort Auscultation: lungs clear to auscultation bilaterally Cardiovascular: Rate/Rhythm: regular rate Heart Sounds: normal S1 and normal S2 Extremities: + edema (+3 extending to the thighs) Gastrointestinal (Abdomen): Inspection/Auscultation: + abdomen distended Percussion/Palpation: + ascites and + fluid wave Musculoskeletal: Extremities: no cyanosis and no clubbing Skin: + pallor; no jaundice Neurologic: awake; not confused Motor/Sensory: no tremor and no asterixis Psychiatric: Orientation: alert and oriented x 3 Results & Data Vital Signs (Past 12 Hours) Vital Signs Temp Pulse Pulse Resp BP BP Pulse Ox 05/02/24 11:26 36.5 C 74 16 109/73 96 05/02/24 10:56 36.8 C 83 16 122/74 96 05/02/24 10:26 36.8 C 89 16 120/83 96 05/02/24 09:56 36.7 C 77 16 117/82 96 05/02/24 09:41 36.9 C 85 16 109/58 L 96 05/02/24 09:21 36.9 C 80 18 102/69 94 05/02/24 07:30 05/02/24 06:24 37.4 C 99 H 16 155/91 H 94 O2 Del Method 05/02/24 11:26 05/02/24 10:56 05/02/24 10:26 05/02/24 09:56 05/02/24 09:41 05/02/24 09:21 05/02/24 07:30 Room Air 05/02/24 06:24 Room Air Laboratory Results Laboratory Results - last 24 hr 05/01/24 05/01/24 05/02/24 16:43 20:20 06:08 WBC 5.13 RBC 2.10 L Hgb 6.9 L* Hct 21.1 L MCV 100.5 H MCH 32.9 MCHC 32.7 RDW Std Deviation 70.3 H RDW Coeff of Claude 19.6 H Plt Count 112 L MPV 10.8 PT 13.9 H INR 1.3 H Sodium 139 Potassium 4.0 Chloride 101 Carbon Dioxide 33 H Anion Gap 5 BUN 13 Creatinine 1.65 H Est Cr Clr Drug Dosing 41.4 eGFR 36.71 BUN/Creatinine Ratio 7.9 L Glucose 82 POC Glucose 138 H 153 H Calcium 8.8 Total Bilirubin 2.3 H AST 19 ALT 8 Alkaline Phosphatase 69 Total Protein 5.8 L Albumin 3.6 Globulin 2.2 L Albumin/Globulin Ratio 1.6 Blood Type Antibody Screen Crossmatch 05/02/24 05/02/24 05/02/24 07:17 07:31 11:19 WBC RBC Hgb Hct MCV MCH MCHC RDW Std Deviation RDW Coeff of Claude Plt Count MPV PT INR Sodium Potassium Chloride Carbon Dioxide Anion Gap BUN Creatinine Est Cr Clr Drug Dosing eGFR BUN/Creatinine Ratio Glucose POC Glucose 135 H 137 H Calcium Total Bilirubin AST ALT Alkaline Phosphatase Total Protein Albumin Globulin Albumin/Globulin Ratio Blood Type A Negative Antibody Screen NEGATIVE Crossmatch See Detail PG Care Time/CCT Total # of Minutes Spent Total Time Spent with Patient: Total time spent is greater than 50% in coordination of care (as documented) at patient's floor/unit and/or counseling patient: Coding Level of Care Code 16687 SUB INP/OBS CARE MIN Diagnoses Acute kidney injury superimposed on CKD N17.9; N18.9 Cirrhosis of liver K74.60 Anemia D64.9
--- NOTE | 2024-05-02 13:27 | Hospitalist Progress Note ---
Date of Service May 02, 2024 Assessment & Plan (1) JESSICA (acute kidney injury): Plan: Progressively worsening renal function. Cr risin from 1.18 in August to 1.9 on admission. Has been stable at 1.8 last few days. Today down to 1.6 Suspect due to change in diuretics although may be developing hepatorenal syndrome. She is not entirely clear of the medications she is taking. R&D Engineer involved Continue reduced dose of 1mg Bumex BID IV albumin and octreotide have been discontinued Midodrine resumed She got a unit of blood on 04/29. She is getting another unit of blood today 05/02 (2) Chills: Plan: Monitor overnight for objective fever No abdominal pain on exam to suggest SBP WBC elevated on admission but normal now, procalcitonin level normal Blood cultures negative (3) Cirrhosis of liver: Plan: Longstanding under [facility] hepatology MELD 18 Consideration for TIPS given refractory ascites without hepatic encephalopathy however this can be done on outpatient basis Patient had IR guided therapeutic paracentesis, had 4 L removed on 04/30. She is requesting another paracentesis. Noted pancytopenia. Likely related to cirrhosis. Monitor CBC. Anemic getting blood transfusion. No active blood loss noted. Patient had a bowel movement today that was not bloody or black (4) Fibromyalgia syndrome: Plan: Continue gabapentin PRN (5) Hypothyroidism: Plan: TSH ordered as recent high with reflex to T4 Continue levothyroxine (6) GERD (gastroesophageal reflux disease): Plan: Switch nexium (7) Abdominal ascites: Plan VTE Prophylaxis: SCDs Diet - low Na, T2DM I spoke to the patient's mother on the phone today 05/02. Informed her about her clinical scenario. Likely discharge tomorrow provided renal function maintains a good trend. Admission and Anticipated Discharge Date Admission Date: April 29, 2024 Subjective Patient was seen and examined at 9:20 AM. She denies any chest pain or shortness of breath. She had a bowel movement this morning that was regular brown-colored stool. No black or bloody stools. She was noted to be anemic with a hemoglobin of 6.9. Ordered a unit of blood. She had another 3 L of fluid removed with paracentesis on 05/01. Review of Systems Review of Systems: All systems reviewed & are unremarkable except as noted in Subjective Physical Exam Physical Exam: General: Awake, conversant Heart: S1, S2/regular rate and rhythm, no murmur rubs or gallops Lungs: Clear to auscultation bilaterally. Normal effort Abdomen: Distended abdomen. Shifting dullness. Abdomen is nontender. Positive bowel sounds Extremities: No clubbing/cyanosis. 1+ bilateral edema Behavior: Appropriate, cooperative Results & Data Results & Data Vital Signs (Past 12 Hours) Vital Signs Temp Pulse Pulse Resp BP BP Pulse Ox 05/02/24 11:26 36.5 C 74 16 109/73 96 05/02/24 10:56 36.8 C 83 16 122/74 96 05/02/24 10:26 36.8 C 89 16 120/83 96 05/02/24 09:56 36.7 C 77 16 117/82 96 05/02/24 09:41 36.9 C 85 16 109/58 L 96 05/02/24 09:21 36.9 C 80 18 102/69 94 05/02/24 07:30 05/02/24 06:24 37.4 C 99 H 16 155/91 H 94 O2 Del Method 05/02/24 11:26 05/02/24 10:56 05/02/24 10:26 05/02/24 09:56 05/02/24 09:41 05/02/24 09:21 05/02/24 07:30 Room Air 05/02/24 06:24 Room Air PG Care Time/CCT Total # of Minutes Spent Total Time Spent with Patient: Total time spent is greater than 50% in coordination of care (as documented) at patient's floor/unit and/or counseling patient: Coding Level of Care Code 85137 SUB INP/OBS CARE 2/35MIN Diagnoses JESSICA (acute kidney injury) N17.9 Chills R68.83 Cirrhosis of liver K74.60 Fibromyalgia syndrome M79.7 Acquired hypothyroidism E03.9 Hypothyroidism type: acquired GERD (gastroesophageal reflux disease) K21.9 Abdominal ascites R18.8 (5) Hypothyroidism Hypothyroidism type: acquired Qualified Code(s): E03.9 - Hypothyroidism, unspecified
[2024-05-02] MEDS: GABAPENTIN 100 MG CAP PO PRN (17:43)
[2024-05-02 21:17] VITALS: PULSE 78
[2024-05-03 07:58] VITALS: BP 112/73; RESP 16; TEMP 97.7; O2SAT 97
[2024-05-03 08:15] LABS: Calcium 8.8 mg/dl (8.6-10.3); Potassium 3.9 mmol/L (3.5-5.1)
[2024-05-03 08:20] LABS: BUN Creatinine Ratio 8.2 (10-20); Creatinine Clr Calc Pharmacy 37.1 ml/min
--- NOTE | 2024-05-03 10:25 | Nephrology Progress Note ---
Date of Service May 03, 2024 Assessment & Plan (1) Acute kidney injury superimposed on CKD: Plan: Non-oliguric. Kidney function stable. 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 Continue diuretics to encourage urine output. Edita declined MRA therapy; she did not feel that she tolerated it well in the past. I Continue midodrine for hypotension. Close outpatient follow up in the nephrology clinic will be required. Follow up with me in the [place] clinic within the next 2 weeks. Check a metabolic profile early next week. I discussed the plan of care with Dr. Watson. Medications are appropriate for kidney function. (2) Cirrhosis of liver: Plan: MELD-Na 18. Followed by hepatology through [facility] as outpatient. Refractory ascites. No history of HE. Clinical presentation concerning for progressive decompensated liver disease. Close outpatient follow up with hepatology required. (3) Anemia: Plan: Edita denies signs of GI blood loss. PRBC transfusion was provided 04/29 and 05/02. Outpatient follow up regarding anemia will need to be coordinated with hepatology or Edita's PCP. Admission and Anticipated Discharge Date Admission Date: April 29, 2024 Subjective No acute events overnight. Edita feels well and would like to go home today. I discussed the plan of care with Dr. Watson. Review of Systems Review of Systems: All systems reviewed & are unremarkable except as noted in HPI & below Physical Exam Constitutional: + frail appearing; no acute distress Eyes: + anicteric sclerae; no conjunctival abn ormality ENMT: Mouth: no oral mucosal abnormality and oral mucous membranes not dry Neck: normal visual inspection and trachea midline Respiratory: normal respiratory effort Auscultation: lungs clear to auscultation bilaterally Cardiovascular: Rate/Rhythm: regular rate Heart Sounds: normal S1 and normal S2 Extremities: + edema (+3 extending to the thighs) Musculoskeletal: Extremities: no cyanosis and no clubbing Skin: + pallor; no jaundice Neurologic: awake; not confused Motor/Sensory: no tremor and no asterixis Psychiatric: Orientation: alert and oriented x 3 Results & Data Vital Signs (Past 12 Hours) Vital Signs Temp Pulse Resp BP Pulse Ox O2 Del Method 05/03/24 07:57 36.5 C 78 16 112/73 97 Room Air 05/03/24 07:30 Room Air Laboratory Results Laboratory Results - last 24 hr 05/02/24 05/02/24 05/02/24 07:31 11:19 16:33 WBC RBC Hgb Hct MCV MCH MCHC RDW Std Deviation RDW Coeff of Claude Plt Count MPV Absolute Nucleated RBC Nucleated RBC % (auto) Platelet Estimate Sodium Potassium Chloride Carbon Dioxide Anion Gap BUN Creatinine Est Cr Clr Drug Dosing eGFR BUN/Creatinine Ratio Glucose POC Glucose 137 H 106 H Calcium Crossmatch See Detail 05/02/24 05/03/24 05/03/24 20:54 07:25 07:36 WBC Cancelled RBC Cancelled Hgb Cancelled Hct Cancelled MCV Cancelled MCH Cancelled MCHC Cancelled RDW Std Deviation Cancelled RDW Coeff of Claude Cancelled Plt Count Cancelled MPV Cancelled Absolute Nucleated RBC Cancelled Nucleated RBC % (auto) Cancelled Platelet Estimate Cancelled Sodium 139 Potassium 3.9 Chloride 99 Carbon Dioxide 33 H Anion Gap 7 BUN 15 Creatinine 1.84 H Est Cr Clr Drug Dosing 37.1 eGFR 32.21 BUN/Creatinine Ratio 8.2 L Glucose 101 H POC Glucose 116 H 113 H Calcium 8.8 Crossmatch PG Care Time/CCT Total # of Minutes Spent Total Time Spent with Patient: Total time spent is greater than 50% in coordination of care (as documented) at patient's floor/unit and/or counseling patient: Coding Level of Care Code 55446 SUB INP/OBS CARE 3/50MIN Diagnoses Acute kidney injury superimposed on CKD N17.9; N18.9 Cirrhosis of liver K74.60 Anemia D64.9
[2024-05-03 10:55] LABS: Hematocrit (blood only) 27.9 % (37.0-47.0); Hemoglobin 9.4 g/dl (12.0-16.0); Mean Corpuscular Hemoglobin 32.4 pg (25.0-34.0); Mean Corpuscular Hgb Conc 33.7 g/dL (32.0-36.0); Mean Corpuscular Volume 96.2 fL (80.0-100.0); Mean Platelet Volume 10.9 fL (9.4-12.4); Platelet Count 110 K/uL (130-400); RDW Coefficient of Variation 19.9 % (11.5-14.5); RDW Standard Deviation 68.8 fL (36.4-46.3); White Blood Count 6.94 K/ul (4.8-10.8)
--- NOTE | 2024-05-03 11:39 | Discharge Summary ---
Date of Service May 03, 2024 Admission HPI Per Admitting Provider Edita Benavides is a 54 year old female with RODRIGUEZ liver cirrhosis who presents to the ER due to abnormal outpatient labs. She reports she was told her renal function was bad and potassium low so was advised by her PCP to come to the ER for further evaluation. Multiple medications wrong on her med list and she is not confident what she is taking at home. She is prescribed eplerenone but does not this she is taking this as it makes her nausous. She is also prescribed potassium chloride 20 meq TID but usually takes this 1-2 times a day as it also makes her feels nauseous. No new fever, respiratory gastrointestinal or urinary symptoms. She is having paracentesis once a week and notes she is filling up with fluid faster recently and by Tuesday feels she needs additional paracentesis. No new abdominal pain, just tense like usual. Only new symptom has been chills for the last 2 days. Admission Exam Per Admitting Provider Constitutional: WD/WN, vitals as above ENMT: external ear and nose normal, oropharynx normal Respiratory: normal respiratory effort, lungs clear to auscultation Cardiovascular: Rate/Rhythm: regular rate and regular rhythm Heart Sounds: no murmur Extremities: normal capillary refill and + pedal edema (trace b/l equal) Gastrointestinal (Abdomen): Inspection/Auscultation: + abdomen distended Percussion/Palpation: + abdomen rigid; abdomen nontender and no guarding Musculoskeletal: no cyanosis or clubbing, extremities motor strength 5/5 Skin: no rashes, warm and dry Neurologic: moves all extremities and awake; not confused Psychiatric: A+Ox3, euthymic affect Genitourinary: no CVA tenderness Principal Diagnosis Acute kidney injury superimposed on CKD Anemia most likely related to cirrhosis Liver cirrhosis Discharge Exam General: Awake, conversant Heart: S1, S2/regular rate and rhythm, no murmur rubs or gallops Lungs: Clear to auscultation bilaterally. Normal effort Abdomen: Distended abdomen. Shifting dullness. Abdomen is nontender. Positive bowel sounds Extremities: No clubbing/cyanosis. 1+ bilateral edema Behavior: Appropriate, cooperative Discharge Data Allergies Allergy/AdvReac Type Severity Reaction Status Date / Time No Known Allergies Allergy Verified 04/12/24 09:56 Consultations 04/27/24 14:51 ED Decision to Admit Stat 04/27/24 16:32 Consult Nephrology Routine Ordered Studies 04/27/24 11:59 CT abd pelvis wo con Stat 04/30/24 08:06 IR paracentesis abd w/img US Routine 05/01/24 13:57 IR paracentesis abd w/img US Routine Hospital Course (1) JESSICA (acute kidney injury): Progressively worsening renal function. Cr risin from 1.18 in August to 1.9 on admission. Has been stable at 1.8 last few days. 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 Patient may have HRSII Continue reduced dose of 1mg Bumex BID IV albumin and octreotide have been discontinued Continue midodrine She will need to follow-up with nephrology in 2 weeks Cleared for discharge by nephrology on Bumex 1 mg p.o. twice daily and midodrine (2) Chills: Monitor overnight for objective fever No abdominal pain on exam to suggest SBP WBC elevated on admission but normal now, procalcitonin level normal Blood cultures negative (3) Cirrhosis of liver: Longstanding under [facility] hepatology MELD 18 Consideration for TIPS given refractory ascites without hepatic encephalopathy however this can be done on outpatient basis Patient had IR guided therapeutic paracentesis, had 4 L removed on 04/30. 3 L removed in 05/01 Noted pancytopenia. Likely related to cirrhosis. Monitor CBC. Anemic getting blood transfusion. No active blood loss noted. 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 Anemia workup may need to be pursued outpatient (4) Fibromyalgia syndrome: Continue gabapentin PRN (5) Hypothyroidism: TSH ordered as recent high with reflex to T4 Continue levothyroxine (6) GERD (gastroesophageal reflux disease): (7) Abdominal ascites: Plan Discharge to home today Total Time Total Time Spent Total Time Spent (In Minutes): 35 Discharge Plan Discharge Items Patient Disposition: Home - Self-Care Reason For Visit: JESSICA, HEPATORENAL SYNDROME Discharge Diagnosis: Acute kidney injury superimposed on CKD Anemia most likely related to cirrhosis Liver cirrhosis Activity: Resume your previous activity Non-emergency contact: Primary Care Provider Call non-emergency contact if: you have any medication questions and your symptoms worsen Follow-up/Referrals: Alex Correa MD [Primary Care Provider] - 05/10/24 10:30 am Dangelo Serna DO [Physician] - 05/11/24 1:40 pm Diet: Low Sodium (2gm) Addtl Attending Provider Instructions: Advised to follow-up with PCP in 1 week Advised to follow-up with GI hepatology in 1 week Advised to follow-up with nephrology in 2 weeks Pending Studies at Discharge: No Stand-Alone Forms: My [facility] Medications and DC Order Prescriptions: New midodrine 2.5 mg Tablet 5 mg PO TID@0800,1200,1700 30 Days Qty: 90 0RF bumetanide 1 mg Tablet 1 mg PO BID17 30 Days Qty: 30 0RF insulin glargine [Lantus U-100 Insulin] 100 unit/mL Solution 5 unit subcut QPM 30 Days Qty: 1.5 0RF Continued methadone 10 mg/mL concentrate 82 mg PO QAM (DME) Oxygen Home Liters Per Minute See Rx Instructions .Route Qty: 1 0RF Rx Instructions: 2 L /MIN at rest / 3 LPM with activity (DME) pen needle, diabetic [BD Shantel 2nd Gen Pen Needle] 32 gauge x 5/32" needle See Rx Instructions .Route Qty: 100 11RF Rx Instructions: Inject insulin once daily famotidine [Pepcid] 20 mg tablet 20 mg PO HS Qty: 90 3RF cyclobenzaprine 10 mg tablet 10 mg PO HS PRN (Reason: muscle spasm) 30 Days Qty: 20 0RF esomeprazole magnesium [Nexium] 40 mg capsule,delayed release(DR/EC) 40 mg PO BID Qty: 60 5RF ondansetron 4 mg tablet,disintegrating 4 mg PO Q8H PRN (Reason: nausea and vomiting) Qty: 30 1RF levothyroxine 150 mcg tablet 150 mcg PO QAM Qty: 90 3RF magnesium 250 mg tablet 250 mg PO DAILY Qty: 30 5RF albuterol sulfate 90 mcg/actuation HFA aerosol inhaler 2 puff inhalation Q6H PRN (Reason: shortness of breath or wheezing) Qty: 8.5 1RF (DME) blood-glucose meter [OneTouch Verio Flex meter] Misc See Rx Instructions .Route Qty: 1 1RF Rx Instructions: check blood sugar BID lorazepam [Ativan] 0.5 mg tablet 0.5 mg PO DAILY PRN (Reason: Anxiety) (DME) lancets 33 gauge misc See Rx Instructions .Route Qty: 200 3RF Rx Instructions: Test blood sugar two times daily (DME) OneTouch Verio test strips Strip See Rx Instructions .Route Qty: 100 6RF Rx Instructions: check blood sugar BID (DME) lancets [OneTouch Delica Plus Lancet] 33 gauge misc See Rx Instructions .Route Qty: 100 6RF Rx Instructions: check blood sugar BID ferrous sulfate 325 mg (65 mg iron) Tablet 325 mg PO DAILY naloxone [Narcan] 4 mg/actuation spray,non-aerosol 1 ea intranasal DIRECTED PRN (Reason: OVERDOSE) gabapentin 100 mg capsule 100 mg PO Q12H PRN (Reason: Fibromyalgia) buspirone 15 mg tablet 15 mg PO BID Discontinued potassium chloride 20 mEq tablet extended release 20 meq PO TID Qty: 90 5RF Rx Instructions: Takes 1-2 / day per her nausea bumetanide 2 mg tablet 2 mg PO BID insulin glargine [Lantus Solostar U-100 Insulin] 100 unit/mL (3 mL) insulin pen 16 unit subcut QPM Discharge Orders: Discharge Order (Routine); Ordered 05/03/24 Ordered By: Jenaro Watson Admission Data Admit Date/Time: 04/29/24 08:35 Attending Provider: Jenaro Watson Admit Provider: Jenaro Watson Primary Care Provider: Alex Correa V. Other Providers: Jillian Brink; Ko Costa Other Interventions: Discharge Summary Assessment (RN) Last Done: 05/03/24 11:50
== END 2024-05-03 13:02 | disposition home or self-care (01) | DRG 682 ==
LOC: EDINP 11:43 → ED 11:43 → SUATTDRO 16:32 → 3N 20:25 → SUATTDRO 04-29 08:35